=== PATIENT | female | born 1965 | race African-American/Black ===

== ENCOUNTER 2016-03-29 11:50 | Inpatient (IN) ==
--- NOTE | 2016-03-29 13:27 | Nephrology History & Physical ---
History of Present Illness Chief complaint: end-stage renal disease History of present illness: Ms. Arango is a 50 year old female who I saw in the office today. The patient was referred by local medical doctor yesterday she was found to have a creatinine of 14 mg/dL at his office. The patient states she has been having nausea and vomiting on a regular basis for the past month or so. She also describes having dysguasia. The patient has also had decreased appetite and loss of weight increase is and decreasing energy for the past month or so. She also was noticed that her hair has been falling out the past month or so. She' s had a and twitching movement as well. The patient is a 15 year history of hypertension. She reports having some kind of nephritis as a child for which she received steroids but came off of these at age 18. The patient thinks she had some lab done about a year ago and was told that she had some anemia at that time. ROS: Head - denies headaches ENT - denies sore throat Lymphatics - denies lymphadenopathy Hematology -she's noticed some easy bruising Heart - denies chest pain Lungs -positive dyspnea on exertion Abdomen - denies abdominal pain Musculoskeletal -she's had some backaches and arm aches she takes ibuprofen for these pains Skin - denies rash Neurology - denies stroke General - denies fever PE: General: in no acute distress Eyes: Pupils are round and reactive, conjunctivae are clear ENT: Nose is clear, O/P is benign Neck: Supple, no thyromegaly Lymphatics: No cervical, supraclavicular or axillary adenopathy Heart: Regular rate and rhythm, no edema Lungs: Clear to auscultation anteriorly, chest expansion symmetric Abdomen: Soft, normoactive bowel sounds, no hepatomegaly Musculoskeletal: No joint erythema or effusions or joint asymmetry Skin: Normal turgor, normal hydration, no rash Neuro/Psych: Alert and cooperative with poor insight Home Medications Medication Instructions Recorded Confirmed Type Ferrous Sulfate 325 mg PO BID 03/29/16 03/29/16 History Lisinopril 20 mg PO DAILY 03/29/16 03/29/16 History Multivitamin (Centrum) [Centrum 1 tablet PO DAILY 03/29/16 03/29/16 History Tab] Allergies Allergy/AdvReac Type Severity Reaction Status Date / Time No Known Allergies Allergy Verified 03/29/16 13:20 Medical,Surgical,& Family Hx - Medical History Cardio: History of: Hypertension Renal: History of: Renal Failure Reproductive: History of: Ovarian Cysts - Surgical History Reproductive Surgeries: Surgical HX of;: Section, Hysterectomy - Family History Family History: Reports;: Family Heart Disease (sister), Family Stroke (mother, father) Denies;: Family Anesthesia Reaction, Family Cancer, Family Diabetes, Family Hematology, Family Hypertension, Family Psychiatric Problems, Additional Family History - Social History Smoking Status: Never smoker Frequency of Alcohol Use: None Type of Drug Use: None Exam - Nephrology - Vital Signs Vital signs: Vital Signs Temp Pulse Resp BP Pulse Ox 03/29/16 13:03 97.9 F 86 18 151/97 99 Assessment and Plan (1) End stage renal disease Status: Acute Assessment and plan: We'll ask surgery to place a permanent dialysis catheter and initiate hemodialysis today or tomorrow, I'll check a urinalysis spot urine microalbumin to creatinine ratio and an antibody workup. I'll also try and get her previous labs from a year ago to see what her baseline creatinine had been. 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 Current Visit: Yes (2) Hypertension Status: Acute Assessment and plan: I'll start her on amlodipine 5 mg daily Current Visit: Yes (3) Anemia Status: Acute Assessment and plan: I'll transfuse HER-2 units packed red blood cells on hemodialysis and we'll Hemoccult her stool and check her iron stores. Current Visit: Yes (4) Hyperkalemia Status: Acute Assessment and plan: This should improve with hemodialysis Current Visit: Yes (5) Metabolic acidosis Status: Acute Assessment and plan: I'll give the patient some sodium bicarbonate Current Visit: Yes
[2016-03-29] MEDS ORDERED: PROMETHAZINE 25 MG TABLET PO PRN (13:31)
[2016-03-29] MEDS ORDERED: diphenhydrAMINE CAP 25 MG CAPSULE PO PRN (13:31)
[2016-03-29] MEDS ORDERED: ACETAMINOPHEN 325 MG TABLET PO PRN (13:31)
[2016-03-29] MEDS ORDERED: ZALEPLON 5 MG CAPSULE PO PRN (13:31)
--- NOTE | 2016-03-29 13:51 | General Surgery Consult Note ---
Addendum entered and electronically signed by Lien Nam PA 03/29/16 13:54: pt states when she was 6yo she was told by her hospital receptionist dr suárez that she had nephrotic syndrome. she was placed on steroids and took them until she was 18. they were stopped because she had a "moonface" and didnt want her senior portraits messed up. Original Note: Assessment and Plan - Time spent with patient Time spent with patient: Less than 30 minutes (1) End stage renal disease Status: Acute Assessment and plan: 50AAF w history of htn on lisinopril admitted by dr ector macario ESRD. pt in need of tunneled HD catheter. dr dougherty to see and examine pt. pt is npo so set up for tunneled HD cath today in OR. Current Visit: Yes History of Present Illness Chief complaint: N/V, hair loss, twitching History of present illness: 50NAF w history of HTN admitted by dr ector macario renal failure w creatinine of 14. pt states since december she has had nausea and vomiting. she states shortly thereafter all of her hair fell out. she recently started having muscle twitches as well. pt had some insurance issues that kept her from seeking medical attention. she saw an [facility] this week and she did blood work. she called pt and told her to follow up w a family doctor for abnormal urine tests. dr kaia flanagan wedge[place] sent her to dr barney this am. todays labs are all pending. pt denies CP, SOB, pedal edema or dysuria. dr dougherty has been consulted to place tunneled catheter. Home Medications Medication Instructions Recorded Confirmed Type Ferrous Sulfate 325 mg PO BID 03/29/16 03/29/16 History Lisinopril 20 mg PO DAILY 03/29/16 03/29/16 History Multivitamin (Centrum) [Centrum 1 tablet PO DAILY 03/29/16 03/29/16 History Tab] Allergies Allergy/AdvReac Type Severity Reaction Status Date / Time No Known Allergies Allergy Verified 03/29/16 13:20 Medical,Surgical,& Family Hx - Medical History Cardio: History of: Hypertension Renal: History of: Renal Failure Reproductive: History of: Ovarian Cysts - Surgical History Reproductive Surgeries: Surgical HX of;: Section, Hysterectomy - Family History Family History: Reports;: Family Heart Disease (sister), Family Stroke (mother, father) Denies;: Family Anesthesia Reaction, Family Cancer, Family Diabetes, Family Hematology, Family Hypertension, Family Psychiatric Problems, Additional Family History - Social History Smoking Status: Never smoker Frequency of Alcohol Use: None Type of Drug Use: None - Constitutional Constitutional: Present: as per HPI Exam - Constitutional Vitals: Period Temp Pulse Resp BP Sys/Bobo Pulse Ox Last 24 Hr 97.9 F 86 18 151/97 99 50 pleasant AAF, NAD, alert and oriented chest clear cv rrr abd soft, soreness from vomiting ext no edema Quality Measures - VTE Contraindication to Pharmacological VTE Prophylaxis: High Risk of Bleeding Results - Labs Labs: labs are pending. Creatinine from outside 14
[2016-03-29] MEDS: amLODIPine 5 MG TABLET PO SCH (14:00)
[2016-03-29] MEDS: SODIUM BICARBONATE 650 MG TABLET PO SCH ×2 (14:00→20:43)
[2016-03-29 14:04] LABS: Basophils % 0.1 % (0.0-0.8); Eosinophils # 0.1 10*3/uL (0.0-0.87); Eosinophils % 0.8 % (0.00-10.9); Hematocrit 21.1 VOL% (35.7-47.0); Hemoglobin 6.8 GM/DL (12.0-16.0); Immature Granulocytes % 0.4 %; Immature Granulocytes Absolute 0.03 #; Lymphocytes # 2.1 10*3/uL (1.4-4.0); Lymphocytes % 25.8 % (21.3-54.2); Mean Corpuscular HGB Conc 32.2 GM/DL (32-36); Mean Corpuscular Hemoglobin 29 PG (27-34); Mean Corpuscular Volume 91.3 FL (87-102); Mean Platelet Volume 10.8 FL (9.6-12.0); Monocytes # 0.5 10*3/uL (0.11-0.8); Monocytes % 6.8 % (1.7-12.7); Neutrophils # 5.3 10*3/uL (1.4-7.4); Neutrophils % 66.1 % (38.7-73.9); Platelet Count 180 T/CUMM (130-400); Red Blood Count 2.31 MC/CUMM (3.8-5.5); Red Cell Distribution Width 13.2 % (9.3-17.3)
[2016-03-29] MEDS ORDERED: BUPIVACAINE MPF 0.25% /EPI 30 ML VIAL ONE (14:13)
[2016-03-29] MEDS ORDERED: LIDOCAINE 1%/EPI INJ 20 ML VIAL ONE (14:13)
[2016-03-29] MEDS ORDERED: HEPARIN 5,000 UNIT/1 ML VIAL ONE (14:13)
[2016-03-29 14:22] LABS: Alanine Aminotransferase 18 U/L (13-56); Albumin 3.4 G/DL (3.4-5.0); Alkaline Phosphatase 122 U/L (45-117); Aspartate Amino Transferase 12 U/L (0-37); Bilirubin,Total < 0.39 MG/DL (0.2-1.0); Blood Urea Nitrogen 126 MG/DL (7-18); Calcium 6.1 MG/DL (8.5-10.1); Glucose 91 MG/DL (74-106); Potassium 5.4 MMOL/L (3.5-5.1); Sodium 143 MMOL/L (136-145)
[2016-03-29 14:23] LABS: % Iron Saturation 49.3 % (18-50); Ferritin 334.8 ng/ml (8-252)
[2016-03-29] MEDS ORDERED: SODIUM CHLORIDE 0.9% 250 ML IV PRN (14:52)
[2016-03-29 15:15] LABS: Hepatitis A Ab IgM Quant 0.13 Index; Hepatitis A Ab IgM Result Negative (Negative); Hepatitis B Core IgM Quant 0.15 Index; Hepatitis B Core IgM Result Negative (Negative); Hepatitis B Surface Ag Quant < 0.10 Index; Hepatitis B Surface Ag Result Negative (Negative); Hepatitis C Virus Ab Quant 0.07 Index; Hepatitis C Virus Ab Result Negative (Negative)
[2016-03-29] MEDS: DEXTROSE 5% NACL 0.45% 1,000 ML IV SCH (16:12)
[2016-03-29] MEDS ORDERED: PROPOFOL 200 MG/20 ML VIAL IV ONE (16:19)
--- NOTE | 2016-03-29 16:50 | Operative Note ---
Date of procedure: 03/29/16 Pre-op diagnosis: renal failure Post-op diagnosis: same Procedure: Preoperative diagnosis Renal failure with need for hemodialysis access Postoperative diagnosis Same Procedures performed 1. Right internal jugular vein tunneled hemodialysis catheter placement 2. Ultrasound guidance and interpretation of images 3. Fluoroscopic guidance and interpretation of images Findings The right internal jugular vein is compressible and it was accessed for hemodialysis access. The tip of the catheter was place in the right atrium. Patient tolerated procedure well and both ports worked well. Complications none apparent Specimen None Indications Renal failure with need for access for hemodialysis Description of procedure The patient was taken to the operating room and transferred to the operating table in the supine position. Pressure points are padded and SCDs placed lower extremity. Monitored anesthesia was administered and the neck was prepped and draped sterile fashion using chloride same. Preoperative antibiotics were administered and a timeout was performed. Ultrasound was used to identify the internal jugular vein and the right neck and local anesthetic was infiltrated around the vein. Local anesthetic was also administered around the planned tract site down to the anterior chest wall below the clavicle. The vein was accessed on first taken nonpulsatile venous blood was obtained. A wire was placed using Seldinger technique. An incision was made alongside the wire using a long blade scalpel and a separate incision below the clavicle was made with an 11 blade scalpel. A 19 cm catheter was tunneled from the chest incision into the neck wound and a dilator peel-away sheath was placed over the wire. The wire and dilator was removed and the catheter was placed to the peel- away sheath. The catheter was secured in place in the atrium and the right atrium on fluoroscopic images. Both returned blood easily and were flushed with heparin. The catheter was secured in place using 3-0 nylon sutures and the neck incision was closed with 3-0 nylon suture. Sterile dressings were applied. The patient was awakened from anesthesia and transferred to recovery. Postoperative plan Begin hemodialysis and obtained chest x-ray postop Implants: 19cm tunneled hemodialysis catheter Anesthesia: MAC, local Surgeon / Physician: Alberto Florentino Estimated blood loss: none Specimens: none sent Condition: stable Disposition: PACU Results - Labs CBC & BMP: 03/29/16 13:45 03/29/16 13:45 Discharge Plan - Discharge Medications No Action Multivitamin (Centrum) [Centrum Tab] 1 tablet PO DAILY Ferrous Sulfate 325 mg PO BID Lisinopril 20 mg PO DAILY - Follow Up or Referral Follow Up: Alberto Florentino MD [Physician] - 2 Weeks (with vein mapping) - Forms/Instructions
--- NOTE | 2016-03-29 16:55 | Anesthesia ---
Anesthesia Post OP - Post Ansesthetic Evaluation Patient seen in post op: Yes Resp: within normal limits CV: within normal limits Mental: within normal limits Temp: within normal limits Nbhw-Mi-Gddtydrst: within normal limits Nausea and Vomiting: within normal limits Pain: within normal limits
[2016-03-29] MEDS ORDERED: MIDAZOLAM 2 MG/2 ML VIAL ONE (16:58)
--- NOTE | 2016-03-29 17:42 | XRay Report ---
Portable chest Date: 03/29/2016 Clinical history: Dialysis catheter Comparison: None Technique: Portable AP sitting chest Findings: The heart is minimally enlarged. Insertion right IJ venous dialysis catheter with tips in right atrium. No pneumothorax. Minimal atelectasis/edema. No acute osseous findings. Impression: Right IJ venous emesis catheter in satisfactory position with no pneumothorax. Minimal atelectasis/edema. PROCEDURE INTERPRETED AT [facility] DEPARTMENT OF RADIOLOGY Final Report Signed by: Dr. Adrianna Dao
--- NOTE | 2016-03-29 18:02 | Interventional Radiology Rpt ---
Exam: IR fluoro guide cv cath Date: 03/29/2016 12:00 AM Comparison: None Indication: Dialysis catheter placement Technique:[Fluoroscopy time of 14 seconds documented. AP C-arm films obtained. Findings: Insertion of right IJ venous dialysis catheter with tips in right atrium. Impression: Satisfactory insertion of right IJ venous dialysis catheter. PROCEDURE INTERPRETED AT [facility] DEPARTMENT OF RADIOLOGY Final Report Signed by: Dr. Adrianna Dao
--- NOTE | 2016-03-29 18:20 | Ultrasound Report ---
Exam: US renal Bilateral Date: 03/29/2016 1:35 PM Comparison: None Indication: Renal failure Technique:[Multiple transabdominal real-time scans were obtained and kidneys. Ultrasound images were captured and stored.] Findings: Right kidney measures 66 x 23 x 3 5 mm. Left kidney measures 64 x 32 x 28 mm. No renal masses or hydronephrosis. Echogenic kidneys. Impression: Generalized cortical loss in the kidneys. Echogenic kidneys which can be seen with medical renal disease. No mass or hydronephrosis. PROCEDURE INTERPRETED AT [facility] DEPARTMENT OF RADIOLOGY Final Report Signed by: Dr. Adrianna Dao
[2016-03-30] MEDS: ONDANSETRON 4 MG/2 ML VIAL IV PRN ×2 (03:54→20:57)
[2016-03-30] MEDS: SODIUM BICARBONATE 650 MG TABLET PO SCH ×3 (09:04→20:28)
[2016-03-30] MEDS: amLODIPine 5 MG TABLET PO SCH (09:04)
[2016-03-30 09:47] LABS: Hematocrit 26.9 VOL% (35.7-47.0)
[2016-03-30 09:55] LABS: Hemoglobin 8.8 GM/DL (12.0-16.0)
[2016-03-30] MEDS ORDERED: cloNIDine 0.1 MG TABLET PO PRN (11:37)
--- NOTE | 2016-03-30 12:15 | Nephrology Progress Note ---
Nephrology - PN: Subj Interval history: Patient seen on hemodialysis, she starting this well. She states she had some nausea after yesterday's dialysis Assessment/plan 1. End-stage renal disease-this patient's renal ultrasound showed increased echogenicity consistent with chronic medical renal disease, her MARITA was negative I suspect she has hypertensive nephrosclerosis. We'll continue hemodialysis. We will plan on a 4 hour treatment tomorrow. 2. Anemia-patient was transfused 2 units packed red blood cells will also give her a by mouth on hemodialysis 3. Hypertension-this patient's blood pressures fluctuating wildely, she's been started on Norvasc 5 mg daily and I've written a order for clonidine when necessary 4. Hyperkalemia this should improve with hemodialysis 5. Metabolic acidosis this should improve with hemodialysis 6. Hypocalcemia-I'm going to check a PTH and phosphorus on hemodialysis today, I'm going to start calcium carbonate thousand milligrams by mouth 3 times a day with meals. Exam (PN)-Nephrology - Vital Signs Vital signs: Period Temp Pulse Resp BP Sys/Bobo Pulse Ox Last 24 Hr 97.9 F-98.5 F 78-114 16-20 116-177/84-99 99-100 - Lab 03/30/16 08:44 03/29/16 13:45 Most recent lab results Calcium 6.1 MG/DL (8.5-10.1) L 03/29/16 13:45 Assessment and Plan (1) End stage renal disease Status: Acute Assessment and plan: We'll ask surgery to place a permanent dialysis catheter and initiate hemodialysis today or tomorrow, I'll check a urinalysis spot urine microalbumin to creatinine ratio and an antibody workup. I'll also try and get her previous labs from a year ago to see what her baseline creatinine had been. 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 Current Visit: Yes (2) Hypertension Status: Acute Assessment and plan: I'll start her on amlodipine 5 mg daily Current Visit: Yes (3) Anemia Status: Acute Assessment and plan: I'll transfuse HER-2 units packed red blood cells on hemodialysis and we'll Hemoccult her stool and check her iron stores. Current Visit: Yes (4) Hyperkalemia Status: Acute Assessment and plan: This should improve with hemodialysis Current Visit: Yes (5) Metabolic acidosis Status: Acute Assessment and plan: I'll give the patient some sodium bicarbonate Current Visit: Yes Specialty Discharge - Follow Up or Referrals Follow up with: Alberto Florentino MD [Physician] - 04/12/16 1:30 pm (with vein mapping. You will go back on April 19 at 9:[address] Florentino.)
[2016-03-30] MEDS ORDERED: EPOETIN ALFA 2,000 UNIT/1 ML VIAL IV PRN (12:16)
[2016-03-30] MEDS: DEXTROSE 5% NACL 0.45% 1,000 ML IV SCH (14:44)
[2016-03-30] MEDS: CALCIUM (CARBONATE) 500 MG TABLET PO SCH (17:17)
[2016-03-31] MEDS: DEXTROSE 5% NACL 0.45% 1,000 ML IV SCH ×2 (06:11→15:20)
[2016-03-31] MEDS: SODIUM BICARBONATE 650 MG TABLET PO SCH ×3 (08:35→20:50)
[2016-03-31] MEDS: CALCIUM (CARBONATE) 500 MG TABLET PO SCH ×3 (08:35→17:32)
[2016-03-31] MEDS: amLODIPine 5 MG TABLET PO SCH (08:35)
--- NOTE | 2016-03-31 09:50 | Dialysis Note ---
Dialysis Note - Dialysis Note Ms. Arango is seen in the dialysis unit. She is to have 4 hour hemodialysis today. She says that she is feeling some better after getting dialysis. She has a right chest dialysis catheter and has no peripheral edema. Overall she is doing well
[2016-03-31 11:04] LABS: Apearance,Urine CLEAR (Clear); Bilirubin,Urine Negative (Negative); Blood, Urine Small mg/dL (Negative); Glucose,Urine (UA) Negative (Negative); Ketones,Urine Negative (Negative); Nitrite,Urine Negative (Negative); Protein,Urine >=500 MG/DL; Squamous Epithelial Cell,Urine Occasional /HPF (0-10); Urine Color Yellow (Yellow); Urine Specific Gravity 1.003 (1.001-1.035); Urine Urobilinogen < 2.0 EU/DL (0.2-1.0); WBC,Urine <1 /HPF (0-6)
[2016-03-31 13:53] LABS: Protein/Creatinine Ratio,Urine 6.7 RATIO
[2016-03-31 14:37] LABS: Microalbum/Creat Ratio Random 4918.9 RATIO (0-30)
[2016-03-31 14:47] LABS: Myeloperoxidase Antibody < 0.2 U
[2016-04-01] MEDS: DEXTROSE 5% NACL 0.45% 1,000 ML IV SCH ×2 (01:01→08:12)
[2016-04-01] MEDS: amLODIPine 5 MG TABLET PO SCH (08:10)
[2016-04-01] MEDS: CALCIUM (CARBONATE) 500 MG TABLET PO SCH ×3 (08:10→16:26)
[2016-04-01] MEDS: SODIUM BICARBONATE 650 MG TABLET PO SCH ×3 (08:10→20:35)
--- NOTE | 2016-04-01 10:19 | Nephrology Progress Note ---
Nephrology - PN: Subj Interval history: Ms. Arango is seen in follow-up of her end-stage renal disease. She is feeling some better and having much less nausea since beginning hemodialysis. She did dialyze yesterday. She is hypocalcemic and is already taking calcium supplement so we will begin calcitriol. Her PTH is 1400 and hopefully the vitamin D help suppress parathyroid hormone. I believe she can do without the IV fluid now that she is eating and drinking some. We will stop it and encouraged her to be up and out of bed. Exam (PN)-Nephrology - Vital Signs Vital signs: Period Temp Pulse Resp BP Sys/Bobo Pulse Ox Last 24 Hr 97.8 F-98.7 F 79-97 16-20 126-151/75-94 98-100 - Lab 03/30/16 08:44 03/29/16 13:45 Most recent lab results Calcium 6.1 MG/DL (8.5-10.1) L 03/29/16 13:45 Phosphorus 2.0 MG/DL (2.5-4.9) L 03/30/16 12:40 Specialty Discharge - Follow Up or Referrals Follow up with: Alberto Florentino MD [Physician] - 04/12/16 1:30 pm (with vein mapping. You will go back on April 19 at 9:[address] Florentino.)
--- NOTE | 2016-04-02 08:37 | Discharge Summary ---
Hospital Course - Hospital Course Hospital Course: Ms. Arango is a 50-year-old -[place] lady who was admitted for increased BUN/creatinine creatinine. The patient's previous baseline creatinine was unknown. She is known to have a 15 year history of hypertension. The patient was having uremic symptoms for the past month or so. She was also noted to have a hematocrit of 21%. Antibody workup was done here this was negative for MARITA her C3 was slightly decreased C4 was normal. ANCA and anti-GBM were pending at the time of discharge. She did have about 5 g of protein leakage per day on a microalbumin to creatinine ratio. Her urinary sediment was otherwise unremarkable. A renal ultrasound showed increased echogenicity consistent with chronic medical renal disease. The patient was initiated on hemodialysis she tolerated this well with some improvement in her uremia symptoms. She is also noted to have an elevated PTH of 1500 a phosphorus of 2 and a calcium is 6.1. She was started on calcium carbonate with meals. The patient was also started on erythropoietin therapy. A tunneled dialysis catheter was placed by Dr. Florentino and she has a follow-up for permanent access in the next couple weeks with Dr. Florentino. The patient is to dialyze in [facility] on a Saturday basis. At this time the patient is reached maximal hospital benefit and is to be discharged home. Diagnosis - Discharge Diagnosis (1) End stage renal disease Status: Acute (2) Hypertension Status: Acute (3) Anemia Status: Acute (4) Hyperkalemia Status: Acute (5) Metabolic acidosis Status: Acute Specialty Discharge - Follow Up or Referrals Follow up with: Alberto Florentino MD [Physician] - 04/12/16 1:30 pm (with vein mapping. You will go back on April 19 at 9:[address] Florentino.) Discharge Plan - Discharge Data Disposition: Disch To Home/Self Care Condition at Discharge: Stable Discharge Diet: advance to your usual diet - Discharge Medications New Calcitriol [Rocaltrol] 0.5 mcg PO QOTHER DAY #14 capsule HYDROcodone/ACETAMIN 5-325 [[place] 5-325] 1 tablet PO Q4H PRN #14 tablet PRN Reason: Pain Mild (1-3) Calcium (Carbonate) [Oscal 500] 1,000 mg PO TID W/MEALS #90 tablet Epoetin Jona [Epogen] 8,000 unit IV WITH DIALYSIS PRN #0 vial PRN Reason: Dialysis amLODIPine [Norvasc] 5 mg PO DAILY #30 tablet Continue Multivitamin (Centrum) [Centrum Tab] 1 tablet PO DAILY Lisinopril 20 mg PO DAILY Discontinued Ferrous Sulfate 325 mg PO BID - Follow Up or Referral Follow Up: Alberto Florentino MD [Physician] - 04/12/16 1:30 pm (with vein mapping. You will go back on April 19 at 9:[address] Florentino.) - Forms/Instructions Instructions: Renal Failure Diet (DC) Exam - Constitutional Vitals: Period Temp Pulse Resp BP Sys/Bobo Pulse Ox Last 24 Hr 97.2 F-99.0 F 85-100 16-18 133-167/81-85 96-98 Discharge Results Procedures and tests throughout hospitalization: Pending Orders 03/29/16 13:37 Occult Blood, Stool Routine 03/29/16 13:45 ANCA Panel for Vasculitis Routine Red Blood Cells Leuko Red Routine Type and Screen Routine dsDNA Ab with Reflex, IgG, S Routine DS: Provider Date of admission: 03/29/16 13:23 Primary care physician: . No PCP Attending physician on admission: Pablo Sutherland MD Consults: 03/29/16 13:20 Consult to Dietitian [CONS] Routine Reason for Dietitian: Other Consult Comment: weight loss 03/29/16 13:24 Consult to Physician [CONS] Routine Comment: Consulting Provider: Alberto Florentino Person Notified: Ch[place] Date Notified: 03/29/16 Time Notified: 13:24 03/29/16 13:34 Consult to Case Mgmt/Social Srvs [CONS] Routine Reason for Case Mgmt/Social Srvs: Rehab Dialysis 03/29/16 13:47 Consult to Anesthesiology [CONS] Routine Consulting Provider: Reason for Anesthesiology: Pre-op Clearance Discharging clinician: Pablo Sutherland MD
[2016-04-02] MEDS: CALCIUM (CARBONATE) 500 MG TABLET PO SCH (08:45)
[2016-04-02] MEDS: amLODIPine 5 MG TABLET PO SCH (08:45)
[2016-04-02] MEDS: SODIUM BICARBONATE 650 MG TABLET PO SCH (08:45)
[2016-04-02] MEDS ORDERED: CALCITRIOL 0.5 MCG CAPSULE PO SCH (09:00)
[2016-04-02 10:08] VITALS: BP 140/83
== END 2016-04-02 11:18 | disposition home or self-care (01) | DRG 683 ==
LOC: N.5E 12:15
PROVIDERS: ADMIT Internal Medicine Nephrology; ATTEND Internal Medicine Nephrology

== ENCOUNTER 2016-10-18 02:02 | Inpatient (IN) ==
--- NOTE | 2016-10-18 03:06 | Emergency Department Note ---
Arrival - Arrival Chief Complaint: Fever Stated Complaint: fever/dialysis pt ED Nursing Triage Note: TO ER PER WHEELCHAIR WITH C/O FEVER. PATIENT STATES SHE BEGAN RUNNING FEVER AFTER DIALYSIS YESTERDAY. PATIENT REPORTS FEVER AT HOME BEFORE COMING TO ER WAS 102. REPORTS TREATED FEVER WITH TYLENOL AROUND 1999 THIS EVENING. PATIENT DOES DIALYSIS ON MWF. Mode of Arrival: Wheelchair Time Seen by Provider: 10/18/16 03:03 - History of Present Illness HPI Narrative: This is a 50-year-old female of descent with a history of hypertension chronic renal failure on hemodialysis Saturday with Dr. Sutherland who presents with shaking chills and fever 102 which started today. Has a Vas-Cath in her left subclavian vein which was placed a few months ago through which she receives dialysis. She had a fistula in her left arm which became infected and for which she completed 6 weeks of gentamicin and vancomycin for staph infection. 2 weeks ago she had a fistula placed in her right arm in [facility]. There is no cough back pain abdominal pain or burning on urination. Allergies/Adverse Reactions: Allergies Allergy/AdvReac Type Severity Reaction Status Date / Time latex Allergy Intermediate RASH Verified 10/18/16 02:15 povidone-iodine Allergy RASH Verified 10/18/16 02:16 [From Betadine] soap [From Betadine] Allergy RASH Verified 10/18/16 02:16 Home Medications: Home Medications Medication Instructions Recorded Confirmed Type Calcitriol [Rocaltrol] 0.5 mcg PO QOTHER DAY #14 capsule 04/02/16 08/09/16 Rx Epoetin Jona [Epogen] 8,000 unit IV WITH DIALYSIS PRN #0 04/02/16 08/09/16 Rx vial Calcium Acetate [Phoslo] 667 mg PO TID 05/08/16 08/09/16 History amLODIPine [Norvasc] 5 mg PO BEDTIME 07/12/16 08/09/16 History Hydrocodone/Acetaminophen [[place] 1 each PO Q6H PRN #5 tablet 08/09/16 Rx 7.5-325 Tablet] HydrOXYzine PAMOATE CAP [Vistaril 50 mg PO QID PRN #20 capsule 08/14/16 Rx Cap] Hydrocortisone 1% Cream 1 applic TOP BID #30 gm 08/14/16 Rx Review of System - Review of System Constitutional: Present: chills, fever Eyes: Absent: redness, vision change Head/Ears/Nose/Throat: Absent: epistaxis, nasal drainage Respiratory: Absent: respiratory distress Cardiovascular: Absent: dyspnea on exertion, orthopnea, edema Gastrointestinal: Absent: diarrhea, constipation, hematemesis Genitourinary female: Absent: frequency, genital lesions, hematuria Musculoskeletal: Absent: joint swelling, lower back pain, leg pain Skin: Absent: change in color, change in hair/nails, pruritus Neurological: Absent: numbness, paresthesias, confusion Psychiatric: Absent: suicidal thoughts, homicidal thoughts, auditory hallucinations Endocrine: Absent: heat intolerance, polydipsia, polyuria Hematological/Lymphatic: Absent: easy bruising, lymphadenopathy Allergic/Immunologic: Absent: urticaria, itchy eyes Medical,Surgical,& Family Hx - Medical History Cardio: History of: Hypertension Neurology: No history of: Seizures HEENT: History of: Eye Problem (GLASSES), Dental Problems (PARTIAL UPPER) Respiratory: No history of: Respiratory Problems (FLU VAC-NO; PNEU VAC-NO.) Renal: History of: Dialysis ([facility], DR [facility]), Renal Failure Gastrointestinal: History of: GI Problems (OCCCASIONAL CONSTIPATION.) Hematology: History of: Anemia (PAST HX) Reproductive: History of: Ovarian Cysts Other: History of: Anesthesia Reactions (NAUSEA AND VOMITING.) - Surgical History Cardiac Surgeries: Sugical HX of: Vascular Access Devices Abdominal Surgeries: Surgical HX of: Colonoscopy, EGD Reproductive Surgeries: Surgical HX of;: Section (X2), Gynecologic Surgery, Hysterectomy (PARTIAL) - Family History Family History: Reports;: Family Heart Disease (sister), Family Stroke (mother, father) Denies;: Family Anesthesia Reaction, Family Cancer, Family Diabetes, Family Hypertension, Family Psychiatric Problems - Social History Smoking Status: Never smoker Frequency of Alcohol Use: None Type of Drug Use: None Exam Vital Signs: Vital Signs Temperature 100.7 F H 10/18/16 02:05 Pulse Rate 126 H 10/18/16 02:05 Respiratory Rate 22 10/18/16 02:26 Blood Pressure 93/68 10/18/16 02:05 O2 Sat by Pulse Oximetry 98 10/18/16 02:05 - General Exam limited due to: ALOC - Head Head exam: Present: atraumatic, normocephalic - Eye Eye exam: Present: PERRL, EOMI - ENT ENT exam: Present: normal exam, normal oropharynx - Neck Neck exam: Present: normal inspection, full ROM - Chest Chest inspection: Present: normal inspection - Respiratory Respiratory exam: Present: normal lung sounds bilaterally - Cardiovascular Cardiovascular exam: Present: regular rate, normal rhythm - Abdominal Exam Abdominal exam: Present: soft, normal bowel sounds - Extremities Exam Extremities exam: Present: normal inspection, full ROM - Back Exam Back exam: Present: normal inspection, full ROM - Neurological Exam Neurological exam: Present: alert, oriented X3, CN II-XII intact - Psychiatric Psychiatric exam: Present: normal affect, normal mood - Skin Skin exam: Present: warm, dry Course Course Narrative: The patient has a 21,000 white blood cell count the chest x-ray does not show an infiltrate. The patient does have a history of shaking chills and fever of 102. We are suspicious that the left Vas-Cath is the source of her infection since during dialysis on Saturday purulent drainage was noted surrounding the catheter. The patient has been cultured and treated with vancomycin and Zosyn and will be admitted to the hospital for removal of the central line most likely an intravenous antibiotics. Results - Labs CBC & BMP: 10/18/16 02:46 10/18/16 02:46 Disposition Clinical Impression: Line sepsis Disposition: Still a Patient Additional Instructions: The patient has a 21,000 white blood cell count the chest x-ray does not show an infiltrate. The patient does have a history of shaking chills and fever of 102. We are suspicious that the left Vas-Cath is the source of her infection since during dialysis on Saturday purulent drainage was noted surrounding the catheter. The patient has been cultured and treated with vancomycin and Zosyn and will be admitted to the hospital for removal of the central line most likely an intravenous antibiotics.
[2016-10-18] MEDS ORDERED: VANCOMYCIN INJ 1,000 MG in SODIUM CHLORIDE 0.9% 250 ML IV STA (03:10)
[2016-10-18] MEDS ORDERED: PIPERACILLIN/TAZOBACTAM 3,375 MG in SODIUM CHLORIDE 0.9% 100 ML IV STA (03:10)
[2016-10-18 03:27] LABS: Basophils % 0.2 % (0.0-0.8); Eosinophils % 0.2 % (0.00-10.9); Hematocrit 33.9 VOL% (35.7-47.0); Hemoglobin 11.4 GM/DL (12.0-16.0); Immature Granulocytes % 0.8 %; Immature Granulocytes Absolute 0.17 #; Lymphocytes % 4.6 % (21.3-54.2); Mean Corpuscular HGB Conc 33.6 GM/DL (32-36); Mean Corpuscular Hemoglobin 32 PG (27-34); Mean Platelet Volume 10.8 FL (9.6-12.0); Monocytes # 0.8 10*3/uL (0.11-0.8); Monocytes % 3.7 % (1.7-12.7); Neutrophils # 19.3 10*3/uL (1.4-7.4); Neutrophils % 90.5 % (38.7-73.9); Platelet Count 174 T/CUMM (130-400); Red Blood Count 3.53 MC/CUMM (3.8-5.5); Red Cell Distribution Width 14.4 % (9.3-17.3); White Blood Count 21.3 T/CUMM (4-12)
[2016-10-18] MEDS ORDERED: VANCOMYCIN 1,000 MG VIAL ONE (03:54)
[2016-10-18] MEDS ORDERED: PIPERACILLIN/TAZOBACTAM 3,375 MG VIAL IV ONE (03:54)
[2016-10-18 04:05] LABS: Apearance,Urine Clear (Clear); Bacteria,Urine Occasional /HPF (Few); Bilirubin,Urine Negative (Negative); Blood, Urine NEGATIVE (Negative); Glucose,Urine (UA) Negative (Negative); Ketones,Urine Negative (Negative); Mucus,Urine Occasional /LPF (Occasional); Nitrite,Urine Negative (Negative); Protein,Urine >=500 MG/DL; RBC,Urine <1 /HPF (0-4); Squamous Epithelial Cell,Urine Occasional /HPF (0-10); Urine Color Straw (Yellow); WBC,Urine 1 /HPF (0-6)
[2016-10-18 04:07] LABS: Urine Urobilinogen 0.2 EU/DL (0.2-1.0)
[2016-10-18 04:14] LABS: Albumin 3.6 G/DL (3.4-5.0); Bilirubin,Total 0.7 MG/DL (0.2-1.0); Calcium 9.2 MG/DL (8.5-10.1); Osmolality,Calculated 272.2 MOS/KG (273-304); Potassium 5.2 MMOL/L (3.5-5.1); Total Protein 7.9 G/DL (6.4-8.3)
[2016-10-18 04:47] LABS: Lymphocytes 8 % (20-55); Segmented Neutrophils 87 % (50-85); Total Cells Counted 100
[2016-10-18 04:48] LABS: Platelet Estimate Normal
[2016-10-18 04:49] LABS: Hypochromasia 1+
[2016-10-18] MEDS ORDERED: ONDANSETRON 4 MG/2 ML VIAL IV PRN (05:30)
--- NOTE | 2016-10-18 06:01 | XRay Report ---
Portable chest Date: 10/18/2016 Clinical history: Fever, sepsis Comparison: 08/15/2016 Technique: Portable AP sitting chest Findings: The heart is normal in size with stable left IJ venous dialysis catheter. Chronic scarring in the lungs with stable mediastinum and osseous structures. Impression: No acute cardiopulmonary pathology identified. PROCEDURE INTERPRETED AT [facility] DEPARTMENT OF RADIOLOGY Final Report Signed by: Dr. Adrianna Dao
--- NOTE | 2016-10-18 06:05 | Hospitalist History & Physical ---
Assessment and Plan (1) ESRD (end stage renal disease) on dialysis Status: Acute Current Visit: Yes (2) Infection, dialysis vascular access Status: Acute Current Visit: Yes (3) Sepsis Status: Acute Current Visit: Yes (4) Hyperkalemia Status: Acute Current Visit: No (5) Hyponatremia Status: Acute Assessment and plan: Plan: 1. Sepsis: Consult Surgery for new central dialysis access. Remove infected access once new access has been obtained. Continue Vancomycin with pharmacy consult. Also, there is always the possiblity of endocarditis in this patient that states she had bacteremia with staph prior to this admission. She states she had received 6 weeks of IV antibiotic therapy. Obtain Echo if blood cultures are positive. 2. HTN:Monitor VS q 4, monitored bed. Labetalol for prn BP control until medications verified and patient can take po. 3. ESRD: Monitor strict I&O, Consult Nephrology for HD. Current Visit: Yes History of Present Illness Chief complaint: Fever, Chills, Infected HD access History of present illness: Ms. Arango is a 50 year old female with past medical history significant for end-stage renal disease and essential hypertension presented to the ED with a fever of 102 and tachycardia of 126. Onset of symptoms was acute and occurred right after HD. The symptoms included fever, chills, malaise, drainage from Left subclavian perm cath site and overall fatigue. The patient denied productive cough, dyspnea, abd pain, nausea, vomiting, dysuria, diarrhea, and melena. Chest xray revealed no infiltrates, Labs revealed leukocytosis of 21,000 , stable anemia, lactate of 1.3 hyponatremia, hyperkalemia and uremia with a creatinine of 6.7. Dialysis days are __. 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 Florentino is her surgeon. Blood cultures and urine sample was sent in the Ed prior to antibiotics. Vancomycin and Zosyn were initiated in the ED. The patient states she recently had a new fistula placed September the with site approximated well in her right arm with positive thrill and no signs of infection. She states she previously had a "staph" infection in which she received antibiotics for 6 weeks. I could not find positive blood cultures in our records. The patient was admitted under observation status to the Hospitalist service with Consults to Dr. Florentino and Nephrology. Home Medications Medication Instructions Recorded Confirmed Type Calcitriol [Rocaltrol] 0.5 mcg PO QOTHER DAY #14 capsule 04/02/16 08/09/16 Rx Epoetin Jona [Epogen] 8,000 unit IV WITH DIALYSIS PRN #0 04/02/16 08/09/16 Rx vial Calcium Acetate [Phoslo] 667 mg PO TID 05/08/16 08/09/16 History amLODIPine [Norvasc] 5 mg PO BEDTIME 07/12/16 08/09/16 History Hydrocodone/Acetaminophen [[place] 1 each PO Q6H PRN #5 tablet 08/09/16 Rx 7.5-325 Tablet] HydrOXYzine PAMOATE CAP [Vistaril 50 mg PO QID PRN #20 capsule 08/14/16 Rx Cap] Hydrocortisone 1% Cream 1 applic TOP BID #30 gm 08/14/16 Rx Allergies Allergy/AdvReac Type Severity Reaction Status Date / Time latex Allergy Intermediate RASH Verified 10/18/16 02:15 povidone-iodine Allergy RASH Verified 10/18/16 02:16 [From Betadine] soap [From Betadine] Allergy RASH Verified 10/18/16 02:16 Medical,Surgical,& Family Hx - Medical History Cardio: History of: Hypertension Neurology: No history of: Seizures HEENT: History of: Eye Problem (GLASSES), Dental Problems (PARTIAL UPPER) Respiratory: No history of: Respiratory Problems (FLU VAC-NO; PNEU VAC-NO.) Renal: History of: Dialysis ([facility]), Renal Failure Gastrointestinal: History of: GI Problems (OCCCASIONAL CONSTIPATION.) Hematology: History of: Anemia (PAST HX) Reproductive: History of: Ovarian Cysts Other: History of: Anesthesia Reactions (NAUSEA AND VOMITING.) - Surgical History Cardiac Surgeries: Sugical HX of: Vascular Access Devices Abdominal Surgeries: Surgical HX of: Colonoscopy, EGD Reproductive Surgeries: Surgical HX of;: Section (X2), Gynecologic Surgery, Hysterectomy (PARTIAL) - Family History Family History: Reports;: Family Heart Disease (sister), Family Stroke (mother, father) Denies;: Family Anesthesia Reaction, Family Cancer, Family Diabetes, Family Hypertension, Family Psychiatric Problems - Social History Smoking Status: Never smoker Frequency of Alcohol Use: None Type of Drug Use: None Functional capacity: independent ambulation - Constitutional Constitutional: Present: chills, fatigue, fever(s), malaise - EENT Eyes: Present: requires corrective lense Ears: Absent: ear discharge, ear pain Nose, mouth and throat: Absent: dysphagia, headache(s), sore throat, throat swelling - Cardiovascular Cardiovascular: Absent: chest pain at rest, chest pain with activity, claudication, diaphoresis, dyspnea, dyspnea on exertion, edema, radiating jaw, neck or arm pain, orthopnea, palpitations - Respiratory Respiratory: Absent: cough, dyspnea, dyspnea on exertion, pain on inspiration - Gastrointestinal Gastrointestinal: Present: constipation. Absent: abdominal pain, fecal incontinence, hematemesis, loose stools, nausea, vomiting - Genitourinary Genitourinary: Present: other (voids without difficulty). Absent: difficulty urinating, dysuria, flank pain - Musculoskeletal Musculoskeletal: Absent: other (right hip with eccymosis) - Neurological Neurological: Absent: confusion, dizziness, frequent falls, paresthesias, syncope - Psychiatric Psychiatric: Absent: confusion, depression, homicidal ideation, panic attacks, suicidal ideation, visual hallucinations - Endocrine Endocrine: Present: fatigue. Absent: heat intolerance, polydipsia - Hematologic/Lymphatic Hematologic/Lymphatic: Present: easy bruising Exam - Constitutional Vitals: Period Temp Pulse Resp BP Sys/Bobo Pulse Ox Last 24 Hr 100.7 F-100.7 F 126-126 18-22 93-93/68-68 98 General appearance: normal weight - Head Head exam: Present: normal inspection, normocephalic, atraumatic - Eye Eye exam: Present: EOMI Pupils: Present: TARAH, normal accommodation - ENT ENT exam: Present: normal exam, normal oropharynx - Neck Neck exam: Present: normal inspection - Respiratory Respiratory exam: Present: clear to auscultation bilaterally - Cardiovascular Cardiovascular exam: Present: tachycardia. Absent: carotid bruit, diastolic murmur, systolic murmur - GI/Abdominal GI/Abdominal exam: Present: normal bowel sounds - Extremities Exam Extremities exam: Present: normal capillary refill, full ROM, other (ecchymosis of right hip. ). Absent: edema - Neurological Exam Neurological exam: Present: alert, oriented X3, CN II-XII intact - Psychiatric Psychiatric exam: Present: normal affect, normal mood - Skin Skin exam: Present: normal color, warm, dry, intact (ecchymosis right hip. Dsg to left subclavian with drainage present. ), other Results - Labs CBC & BMP: 10/18/16 02:46 10/18/16 02:46 - EKG EKG shows: tachycardia - Impressions Sepsis due to possible bacteremia. - Diagnostic Findings Procedure: Chest x-ray: image reviewed by me, report reviewed by me Quality Measures - VTE Contraindication to Pharmacological VTE Prophylaxis: Clinical assessment deems Pt at low risk, no prophalaxis needed
[2016-10-18] MEDS ORDERED: ACETAMINOPHEN 325 MG TABLET ONE ×2 (08:13→12:43)
[2016-10-18] MEDS: ACETAMINOPHEN 325 MG TABLET PO PRN ×2 (08:21→12:43)
[2016-10-18] MEDS ORDERED: DOCUSATE SODIUM 100 MG CAPSULE PO PRN (09:00)
[2016-10-18] MEDS: PANTOPRAZOLE 40 MG TABLET PO SCH (09:40)
--- NOTE | 2016-10-18 17:36 | Nephrology Consult Note ---
History of Present Illness Chief complaint: End-stage renal disease History of present illness: Ms. Arango is a 50 year old female with history of end-stage renal disease due to hypertension currently dialyzes on a Saturday schedule at the [place] dialysis unit. The patient has had multiple accesses placed and recently had a new fistula placed in the left upper arm. Patient states that for the past several days she has noticed some discomfort and some drainage from her tunnel catheter. She was advised to get cultures done at the dialysis unit and today she started having fevers and fatigue. On presentation to the emergency room patient was noted to have temperature 101 and 102 as well as an elevated white blood cell count. She is now being admitted for antibiotics. Home Medications Medication Instructions Recorded Confirmed Type Calcitriol [Rocaltrol] 0.5 mcg PO QOTHER DAY #14 capsule 04/02/16 10/18/16 Rx Epoetin Jona [Epogen] 8,000 unit IV WITH DIALYSIS PRN #0 04/02/16 10/18/16 Rx vial Calcium Acetate [Phoslo] 667 mg PO TID 05/08/16 10/18/16 History amLODIPine [Norvasc] 5 mg PO DAILY 07/12/16 10/18/16 History Hydrocodone/Acetaminophen [[place] 1 each PO Q6H PRN #5 tablet 08/09/16 10/18/16 Rx 7.5-325 Tablet] HydrOXYzine PAMOATE CAP [Vistaril 50 mg PO QID PRN #20 capsule 08/14/16 Rx Cap] Hydrocortisone 1% Cream 1 applic TOP BID PRN 10/18/16 10/18/16 History Lisinopril 40 mg PO DAILY 10/18/16 10/18/16 History Multivitamin [Multivitamins] 1 tablet PO DAILY 10/18/16 10/18/16 History Allergies Allergy/AdvReac Type Severity Reaction Status Date / Time latex Allergy Intermediate RASH Verified 10/18/16 02:15 povidone-iodine Allergy RASH Verified 10/18/16 02:16 [From Betadine] soap [From Betadine] Allergy RASH Verified 10/18/16 02:16 Medical,Surgical,& Family Hx - Medical History Cardio: History of: Hypertension Neurology: No history of: Seizures HEENT: History of: Eye Problem (GLASSES), Dental Problems (PARTIAL UPPER) Respiratory: No history of: Respiratory Problems (FLU VAC-NO; PNEU VAC-NO.) Renal: History of: Dialysis ([facility], [place], [facility]), Renal Failure Gastrointestinal: History of: GI Problems (OCCCASIONAL CONSTIPATION.) Hematology: History of: Anemia (PAST HX) Reproductive: History of: Ovarian Cysts Other: History of: Anesthesia Reactions (NAUSEA AND VOMITING.) - Surgical History Cardiac Surgeries: Sugical HX of: Vascular Access Devices Abdominal Surgeries: Surgical HX of: Colonoscopy, EGD Reproductive Surgeries: Surgical HX of;: Section (X2), Gynecologic Surgery, Hysterectomy (PARTIAL) - Family History Family History: Reports;: Family Heart Disease (sister), Family Stroke (mother, father) Denies;: Family Anesthesia Reaction, Family Cancer, Family Diabetes, Family Hypertension, Family Psychiatric Problems - Social History Smoking Status: Never smoker Frequency of Alcohol Use: None Type of Drug Use: None Review of Systems Constitutional: fatigue, lethargy Cardiovascular: no chest pain at rest Respiratory: no cough, no dyspnea Gastrointestinal: no abdominal pain Musculoskeletal: no muscle weakness Exam - Vital Signs Vital signs: Period Temp Pulse Resp BP Sys/Bobo Pulse Ox Last 24 Hr 99.7 F-102.0 F 109-126 18-22 93-148/58-90 95-112 - General Appearance General appearance: well-developed, well-nourished EENT: ATNC Neck: no JVD, supple Respiratory: clear Cardiology: no edema, regular rate, regular rhythm Gastrointestinal: normoactive bowel sounds Integumentary: no rash (Tunnel catheter in the left chest) Neurologic: alert and oriented x3, CN 3-12 intact Musculoskeletal: no clubbing Psychiatric: mood/affect appropriate, cooperative Results - Labs CBC & BMP: 10/18/16 02:46 10/18/16 02:46 Assessment and Plan (1) Hypertension Status: Chronic Current Visit: No Qualifiers: Hypertension type: essential hypertension Qualified Code(s): I10 - Essential (primary) hypertension (2) Anemia Status: Chronic Current Visit: No Qualifiers: Anemia type: due to chronic kidney disease Chronic kidney disease stage: on chronic dialysis Qualified Code(s): N18.6 - End stage renal disease; D63.1 - Anemia in chronic kidney disease; Z99.2 - Dependence on renal dialysis (3) Line sepsis Status: Acute Assessment and plan: Catheter line infection. Has gotten broad-spectrum antibiotics. Surgery has been consulted. Current Visit: Yes (4) ESRD (end stage renal disease) on dialysis Status: Chronic Assessment and plan: Plan for dialysis on tomorrow as scheduled. We will give vancomycin and gentamicin on dialysis tomorrow. Current Visit: Yes (5) Infection, dialysis vascular access Status: Acute Current Visit: Yes
[2016-10-19] MEDS ORDERED: VANCOMYCIN INJ 750 MG in SODIUM CHLORIDE 0.9% 250 ML IV PRN (05:30)
[2016-10-19 05:58] LABS: Basophils % 0.2 % (0.0-0.8); Eosinophils # 0.3 10*3/uL (0.0-0.87); Eosinophils % 2.3 % (0.00-10.9); Hematocrit 32.2 VOL% (35.7-47.0); Hemoglobin 10.7 GM/DL (12.0-16.0); Immature Granulocytes % 0.4 %; Immature Granulocytes Absolute 0.05 #; Lymphocytes # 1.9 10*3/uL (1.4-4.0); Lymphocytes % 15.8 % (21.3-54.2); Mean Corpuscular HGB Conc 33.2 GM/DL (32-36); Mean Corpuscular Hemoglobin 33 PG (27-34); Mean Corpuscular Volume 98.5 FL (87-102); Mean Platelet Volume 10.7 FL (9.6-12.0); Monocytes # 0.7 10*3/uL (0.11-0.8); Monocytes % 6.1 % (1.7-12.7); Neutrophils # 9.1 10*3/uL (1.4-7.4); Neutrophils % 75.2 % (38.7-73.9); Platelet Count 155 T/CUMM (130-400); Red Blood Count 3.27 MC/CUMM (3.8-5.5); Red Cell Distribution Width 14.6 % (9.3-17.3); White Blood Count 12.2 T/CUMM (4-12)
[2016-10-19 06:28] LABS: Albumin 3.2 G/DL (3.4-5.0); Bilirubin,Total 1.5 MG/DL (0.2-1.0); Calcium 9.7 MG/DL (8.5-10.1); Osmolality,Calculated 285.7 MOS/KG (273-304); Potassium 5.2 MMOL/L (3.5-5.1); Total Protein 6.7 G/DL (6.4-8.3)
[2016-10-19 06:44] LABS: INR 1.1; PT Patient Result 11.6 SECS; Partial Thromboplastin Time 33.4 SECS (0-40)
--- NOTE | 2016-10-19 08:23 | General Surgery Consult Note ---
Assessment and Plan (1) Line sepsis Status: Acute Assessment and plan: The patient's dialysis catheter is infected and she is bacteremic. I recommended removal of her catheter after dialysis today. I have discussed the operation, and the expected outcomes have been reviewed. The patient would like to proceed with the operation. Current Visit: Yes History of Present Illness Chief complaint: Drainage from dialysis catheter with fever History of present illness: Ms. Arango is a 50 year old female who developed purulent drainage around her dialysis catheter with fevers and was bacteremic on blood cultures in the ER. She was admitted for dialysis catheter removal after dialysis today. Home Medications Medication Instructions Recorded Confirmed Type Calcitriol [Rocaltrol] 0.5 mcg PO QOTHER DAY #14 capsule 04/02/16 10/18/16 Rx Epoetin Jona [Epogen] 8,000 unit IV WITH DIALYSIS PRN #0 04/02/16 10/18/16 Rx vial Calcium Acetate [Phoslo] 667 mg PO TID 05/08/16 10/18/16 History amLODIPine [Norvasc] 5 mg PO DAILY 07/12/16 10/18/16 History Hydrocodone/Acetaminophen [[place] 1 each PO Q6H PRN #5 tablet 08/09/16 10/18/16 Rx 7.5-325 Tablet] HydrOXYzine PAMOATE CAP [Vistaril 50 mg PO QID PRN #20 capsule 08/14/16 Rx Cap] Hydrocortisone 1% Cream 1 applic TOP BID PRN 10/18/16 10/18/16 History Lisinopril 40 mg PO DAILY 10/18/16 10/18/16 History Multivitamin [Multivitamins] 1 tablet PO DAILY 10/18/16 10/18/16 History Allergies Allergy/AdvReac Type Severity Reaction Status Date / Time latex Allergy Intermediate RASH Verified 10/18/16 02:15 povidone-iodine Allergy RASH Verified 10/18/16 02:16 [From Betadine] soap [From Betadine] Allergy RASH Verified 10/18/16 02:16 Medical,Surgical,& Family Hx - Medical History Cardio: History of: Hypertension Neurology: No history of: Seizures HEENT: History of: Eye Problem (GLASSES), Dental Problems (PARTIAL UPPER) Respiratory: No history of: Respiratory Problems (FLU VAC-NO; PNEU VAC-NO.) Renal: History of: Dialysis ([facility]), Renal Failure Gastrointestinal: History of: GI Problems (OCCCASIONAL CONSTIPATION.) Hematology: History of: Anemia (PAST HX) Reproductive: History of: Ovarian Cysts Other: History of: Anesthesia Reactions (NAUSEA AND VOMITING.) - Surgical History Cardiac Surgeries: Sugical HX of: Vascular Access Devices Abdominal Surgeries: Surgical HX of: Colonoscopy, EGD Reproductive Surgeries: Surgical HX of;: Section (X2), Gynecologic Surgery, Hysterectomy (PARTIAL) - Family History Family History: Reports;: Family Heart Disease (sister), Family Stroke (mother, father) Denies;: Family Anesthesia Reaction, Family Cancer, Family Diabetes, Family Hypertension, Family Psychiatric Problems - Social History Smoking Status: Never smoker Frequency of Alcohol Use: None Type of Drug Use: None - Constitutional Constitutional: Present: as per HPI - EENT Nose, mouth and throat: Present: as per HPI - Cardiovascular Cardiovascular: Present: as per HPI - Respiratory Respiratory: Present: as per HPI - Gastrointestinal Gastrointestinal: Present: as per HPI - Genitourinary Genitourinary: Present: as per HPI - Musculoskeletal Musculoskeletal: Present: as per HPI - Neurological Neurological: Present: as per HPI - Endocrine Endocrine: Present: as per HPI Hematologic/Lymphatic: Present: as per HPI Exam - Constitutional Vitals: Period Temp Pulse Resp BP Sys/Bobo Pulse Ox Last 24 Hr 98.0 F-102.0 F 93-121 18-20 98-148/48-86 95-112 General appearance: normal weight, no acute distress - Head Head exam: Present: normal inspection, normocephalic - Eye Eye exam: Present: EOMI - ENT ENT exam: Present: normal exam Mouth exam: Present: normal external inspection, normal voice - Neck Neck exam: Present: normal inspection, trachea midline - Respiratory Respiratory exam: Present: clear to auscultation bilaterally. Absent: accessory muscle use, chest wall tenderness - Cardiovascular Cardiovascular exam: Present: RRR. Absent: systolic murmur, tachycardia - GI/Abdominal GI/Abdominal exam: Present: normal bowel sounds, soft. Absent: tenderness, rebound - Extremities Exam Extremities exam: Present: normal inspection, normal capillary refill, other ( There is a good thrill in the right arm fistula) - Neurological Exam Neurological exam: Present: alert, oriented X3 Speech: Present: normal - Skin Skin exam: Present: normal color, warm Quality Measures - VTE Contraindication to Pharmacological VTE Prophylaxis: Clinical assessment deems Pt at low risk, no prophalaxis needed Results - Labs CBC & BMP: 10/19/16 05:30 10/19/16 05:30
[2016-10-19] MEDS ORDERED: HEPARIN 10,000 UNIT/10 ML VIAL IV PRN (09:21)
[2016-10-19] MEDS ORDERED: VANCOMYCIN INJ 1,000 MG in SODIUM CHLORIDE 0.9% 250 ML IV ONE (10:30)
[2016-10-19] MEDS ORDERED: LIDOCAINE 1%/EPI INJ 20 ML VIAL ONE (11:12)
[2016-10-19] MEDS ORDERED: LIDOCAINE 1% 5 ML VIAL ONE (11:25)
[2016-10-19] MEDS ORDERED: PROPOFOL 200 MG/20 ML VIAL IV ONE (11:25)
[2016-10-19] MEDS: SODIUM CHLORIDE 0.9% 250 ML IV SCH (11:26)
--- NOTE | 2016-10-19 11:49 | Operative Note ---
Date of procedure: 10/19/16 Pre-op diagnosis: Bacteremia with infected dialysis catheter Post-op diagnosis: same Procedure: Pre-operative diagnosis Infected hemodialysis catheter Post-operative diagnosis same Procedures Performed Removal of tunneled hemodialysis catheter Findings Complete catheter removal with no obvious infection or clot Complications None apparent Indications Infected hemodialysis catheter with bacteremia Description of procedure The patient was taken to the operating room on his hospital bed and the catheter in chest and neck was prepped chlorhexidine after monitored anesthesia was administered. Timeout was called. Local anesthetic was administered around the catheter and an elliptical skin incision was made with a scalpel. The catheter was freed up the subcutaneous tissues and the cup was . There is good incorporation with no obvious clot or infection. The catheter was completely removed intact and the catheter site was closed with a 4-0 Monocryl suture. The pressure was held over the neck site until bleeding stopped. The patient was transferred to recovery. The catheter tip was sent for culture Postoperative plan Follow-up as needed Anesthesia: MAC, local Surgeon / Physician: Alberto Florentino Estimated blood loss: minimal Specimens: other (catheter tip for culture) Condition: stable Disposition: PACU Results - Labs CBC & BMP: 10/19/16 05:30 10/19/16 05:30 Discharge Plan - Discharge Medications No Action Calcitriol [Rocaltrol] 0.5 mcg PO QOTHER DAY #14 capsule Calcium Acetate [Phoslo] 667 mg PO TID amLODIPine [Norvasc] 5 mg PO DAILY Hydrocodone/Acetaminophen [[place] 7.5-325 Tablet] 1 each PO Q6H PRN #5 tablet PRN Reason: pain HydrOXYzine PAMOATE CAP [Vistaril Cap] 50 mg PO QID PRN #20 capsule PRN Reason: Itching Hydrocortisone 1% Cream 1 applic TOP BID PRN PRN Reason: Itching Multivitamin [Multivitamins] 1 tablet PO DAILY Epoetin Jona [Epogen] 8,000 unit IV WITH DIALYSIS PRN #0 vial PRN Reason: Dialysis Lisinopril 40 mg PO DAILY - Follow Up or Referral - Forms/Instructions
--- NOTE | 2016-10-19 12:00 | Anesthesia Post-Op ---
Anesthesia Post OP - Post Ansesthetic Evaluation Patient seen in post op: Yes Resp: within normal limits CV: within normal limits Mental: within normal limits Temp: within normal limits [id number]: within normal limits Nausea and Vomiting: within normal limits Pain: within normal limits
[2016-10-19] MEDS ORDERED: MIDAZOLAM 2 MG/2 ML VIAL ONE (12:02)
[2016-10-19] MEDS ORDERED: fentaNYL 100 MCG/2 ML VIAL ONE (12:02)
--- NOTE | 2016-10-19 14:08 | Nephrology Progress Note ---
Nephrology - PN: Subj Interval history: The patient is now status post a dialysis catheter removal. She is afebrile at this time. No shortness of breath or chest pain. Continue with broad-spectrum antibiotics. We will plan to leave the catheter out through the weekend. Exam (PN)-Nephrology - Vital Signs Vital signs: Period Temp Pulse Resp BP Sys/Bobo Pulse Ox Last 24 Hr 98.0 F-99.8 F 90-116 16-20 98-139/48-83 93-112 - General Appearance General appearance: well-developed, well-nourished EENT: ATNC Neck: supple Respiratory: clear Cardiology: regular rate, regular rhythm Gastrointestinal: normoactive bowel sounds Neurologic: alert and oriented x3 Musculoskeletal: no erythema, no clubbing Psychiatric: mood/affect appropriate, cooperative - Lab 10/19/16 05:30 10/19/16 05:30 Most recent lab results Calcium 9.7 MG/DL (8.5-10.1) 10/19/16 05:30 Assessment and Plan (1) Hypertension Status: Chronic Current Visit: No Qualifiers: Hypertension type: essential hypertension Qualified Code(s): I10 - Essential (primary) hypertension (2) Anemia Status: Chronic Current Visit: No Qualifiers: Anemia type: due to chronic kidney disease Chronic kidney disease stage: on chronic dialysis Qualified Code(s): N18.6 - End stage renal disease; D63.1 - Anemia in chronic kidney disease; Z99.2 - Dependence on renal dialysis (3) Line sepsis Status: Acute Assessment and plan: Catheter line infection. That is now removed. We will keep catheter out over the weekend plan for new catheter placement on next week. Has gotten broad-spectrum antibiotics. Current Visit: Yes (4) ESRD (end stage renal disease) on dialysis Status: Chronic Assessment and plan: Dialysis on next week. Current Visit: Yes (5) Infection, dialysis vascular access Status: Acute Current Visit: Yes
[2016-10-19] MEDS ORDERED: HydrOXYzine PAMOATE 50 MG CAPSULE PO PRN (15:46)
[2016-10-19] MEDS ORDERED: HYDROCORTISONE 1% CREAM 28 GM TUBE TOP PRN (15:46)
[2016-10-19] MEDS ORDERED: EPOETIN ALFA 10,000 UNIT/1 ML VIAL IV PRN (15:46)
--- NOTE | 2016-10-19 15:52 | Hospitalist Progress Note ---
Assessment and Plan (1) Sepsis Status: Acute Assessment and plan: Patient presented to the hospital with tachypnea tachycardia and very high fevers. There was also an infected catheter site in the left upper chest. This has since been debrided and catheter removed by surgery. She was given a doses of vancomycin today per pharmacy picking tech. They will follow them pharmacokinetics of the drug as we as is being used. I will follow clinically. This is verified with inpatient pharmacy. Current Visit: Yes (2) ESRD (end stage renal disease) on dialysis Status: Chronic Assessment and plan: Administrator Pesticide on the Current Visit: Yes (3) Hyperkalemia Status: Acute Assessment and plan: Blood was drawn before the hemodialysis today will therefore just repeat a BMP with next dialysis Current Visit: No (4) Metabolic acidosis Status: Acute Current Visit: No (5) Anemia Status: Chronic Assessment and plan: This is anemia of chronic disease in a patient with end-stage renal disease. Will follow clinically Current Visit: No Qualifiers: Anemia type: due to chronic kidney disease Chronic kidney disease stage: on chronic dialysis Qualified Code(s): N18.6 - End stage renal disease; D63.1 - Anemia in chronic kidney disease; Z99.2 - Dependence on renal dialysis (6) Hypertension Status: Chronic Current Visit: No Qualifiers: Hypertension type: essential hypertension Qualified Code(s): I10 - Essential (primary) hypertension Hospitalist: Subjective Interval history: Patient has been seen interviewed and examined and chart has been admitted to the hospital with fever element tachycardia with a temperature of 902F and heart rate of 126. Patient does have history of essential hypertension and end- stage renal disease. Long story short patient had an infected dialysis shunt that was on the left subclavian system. Since coming to the hospital on this admission this is been removed. She has another dialysis shunt that is on the right upper extremity too young to be used. An old one that was on the left brachium is since been deconditioned for reason of dysfunction. And has gram- positive cocci growing in the blood pending antibiogram. By PCR MRSA is proved. Patient will be given vancomycin 15 mcg/kg every 48 hours. All antibiotics to be given after dialysis on hemodialysis days. She did have dialysis today. I am expecting that the catheter tip was sent from the operating room to microbiology for cultures. Exam - Constitutional Vitals: Period Temp Pulse Resp BP Sys/Bobo Pulse Ox Last 24 Hr 98.0 F-99.8 F 90-116 16-20 98-139/48-83 93-112 General appearance: normal weight, no acute distress - Head Head exam: Present: normal inspection - Eye Eye exam: Present: EOMI Pupils: Present: TARAH - ENT ENT exam: Present: normal exam - Neck Neck exam: Present: normal inspection - Respiratory Respiratory exam: Present: clear to auscultation bilaterally - Cardiovascular Cardiovascular exam: Present: regular rate and rhythm - GI/Abdominal GI/Abdominal exam: Present: normal bowel sounds, soft - Extremities Exam Extremities exam: Present: full ROM - Neurological Exam Neurological exam: Present: alert, oriented X3, CN II-XII intact - Psychiatric Psychiatric exam: Present: normal affect, normal mood - Skin Skin exam: Present: normal color, warm, dry (Catheter removed from the left subclavian system. Skin is normal with no advancing cellulitis. The side of the right arm AV shunt is normal and the healing with a good buzz.) Results - Labs CBC & BMP: 10/19/16 05:30 10/19/16 05:30 Lab Results: I have reviewed the past 24 hour labs (Positive blood culture with a positive MRSA PCR. Noted hyperkalemia with blood was drawn before hemodialysis) Quality Measures - VTE Contraindication to Pharmacological VTE Prophylaxis: Clinical assessment deems Pt at low risk, no prophalaxis needed
[2016-10-19] MEDS: LISINOPRIL 20 MG TABLET PO SCH (16:44)
[2016-10-19] MEDS: amLODIPine 5 MG TABLET PO SCH (16:45)
[2016-10-19] MEDS: PANTOPRAZOLE 40 MG TABLET PO SCH (16:45)
[2016-10-19] MEDS ORDERED: VANCOMYCIN INJ 750 MG in SODIUM CHLORIDE 0.9% 250 ML IV ONE (17:00)
[2016-10-19] MEDS: CALCIUM ACETATE 667 MG CAPSULE PO SCH (21:37)
[2016-10-20] MEDS: ACETAMINOPHEN 325 MG TABLET PO PRN ×2 (04:46→13:13)
[2016-10-20] MEDS: amLODIPine 5 MG TABLET PO SCH (09:35)
[2016-10-20] MEDS: CALCIUM ACETATE 667 MG CAPSULE PO SCH ×3 (09:35→21:51)
[2016-10-20] MEDS: LISINOPRIL 20 MG TABLET PO SCH (09:35)
[2016-10-20] MEDS: PANTOPRAZOLE 40 MG TABLET PO SCH (09:36)
[2016-10-20] MEDS: MULTIVITAMIN (CENTRUM) TABLET PO SCH (09:36)
--- NOTE | 2016-10-20 10:46 | Nephrology Progress Note ---
Nephrology - PN: Subj Interval history: She is afebrile. She states she feels better overall today. No shortness of breath or nausea. Exam (PN)-Nephrology - Vital Signs Vital signs: Period Temp Pulse Resp BP Sys/Bobo Pulse Ox Last 24 Hr 97.2 F-99.8 F 82-131 16-20 113-153/7-83 90-100 Exam: Gen.: Alert and oriented x3. ENT: Pupils equal round reactive to light. EOMs intact. Mucous membranes moist. Neck: Supple. No JVD or bruit. Cardiovascular: Regular rate and rhythm. No murmur rub or gallop Lungs: Clear Abdomen: Soft. Nontender. Positive bowel sounds. No organomegaly Extremities: No edema. Right arm fistula positive bruit - Lab 10/19/16 05:30 10/19/16 05:30 Most recent lab results Calcium 9.7 MG/DL (8.5-10.1) 10/19/16 05:30 Assessment and Plan (1) Infection, dialysis vascular access Status: Acute Assessment and plan: 50-year-old woman with: * ESRD. She was reminded to restrict potassium and fluid * MRSA bacteremia. Continue vancomycin * Infected dialysis catheter. Catheter removed * Hypertension. Controlled Current Visit: Yes (2) Sepsis Status: Acute Current Visit: Yes (3) ESRD (end stage renal disease) on dialysis Status: Chronic Current Visit: Yes (4) Hypertension Status: Chronic Current Visit: No Qualifiers: Hypertension type: essential hypertension Qualified Code(s): I10 - Essential (primary) hypertension
[2016-10-20] MEDS: SODIUM CHLORIDE 0.9% 250 ML IV SCH (12:20)
[2016-10-20] MEDS: LABETALOL 20 MG/4 ML SYRINGE IV PRN ×2 (13:01→20:41)
--- NOTE | 2016-10-20 14:24 | Hospitalist Progress Note ---
Assessment and Plan (1) Sepsis Status: Acute Assessment and plan: Patient presented to the hospital with tachypnea tachycardia and very high fevers. There was also an infected catheter site in the left upper chest. This has since been debrided and catheter removed by surgery. She was given a doses of vancomycin today per outpatient pharmacy manager. They will follow them pharmacokinetics of the drug as we as is being used. I will follow clinically. This is verified with inpatient pharmacy. Current Visit: Yes (2) ESRD (end stage renal disease) on dialysis Status: Chronic Assessment and plan: Devulcanizer Head on the case. Current Visit: Yes (3) Hyperkalemia Status: Acute Assessment and plan: B resolved Current Visit: No (4) Metabolic acidosis Status: Acute Assessment and plan: Resolved Current Visit: No (5) Anemia Status: Chronic Assessment and plan: This is anemia of chronic disease in a patient with end-stage renal disease. Will follow clinically Current Visit: No Qualifiers: Anemia type: due to chronic kidney disease Chronic kidney disease stage: on chronic dialysis Qualified Code(s): N18.6 - End stage renal disease; D63.1 - Anemia in chronic kidney disease; Z99.2 - Dependence on renal dialysis (6) Hypertension Status: Chronic Assessment and plan: Continue treatment for the home medication for blood pressure Current Visit: No Qualifiers: Hypertension type: essential hypertension Qualified Code(s): I10 - Essential (primary) hypertension (7) MRSA bacteremia Status: Acute Assessment and plan: Patient is on vancomycin. We will continue treated with that. She is put on environmental isolation. Repeat blood cultures verify for continuous bacteremia or the contrary have been drawn. Patient will also use some mupirocin in the anterior nares 10 days a month for 3 months in a row is recommended. Current Visit: Yes Hospitalist: Subjective Interval history: Patient has been seen interviewed and examined and chart has been reviewed. 50- year-old lady with history of end-stage renal disease admitted to the hospital because of line associated sepsis. She had an infected dialysis shunt that had been in the left subclavian system. This was removed in the OR. Subsequent temporary shunt has not been placed yet. She has an AV fistula in the right upper upper extremity which is not matured yet. She undergoes dialysis 3 times a week. Blood cultures have grown methicillin-resistant staph aureus. Repeat cultures to verify continuous bacteremia or the contrary, are being drawn today. Patient is on environmental isolation and was starting use of mupirocin in her nares this in the morning for 10 days each month for 3 months in a row. Clinically she is doing well. Exam - Constitutional Vitals: Period Temp Pulse Resp BP Sys/Bobo Pulse Ox Last 24 Hr 97.2 F-99.0 F 82-131 18-20 131-209/7-110 90-100 General appearance: normal weight, no acute distress - Head Head exam: Present: normocephalic, atraumatic - Eye Eye exam: Present: EOMI Pupils: Present: TARAH - ENT ENT exam: Present: normal exam - Neck Neck exam: Present: normal inspection - Respiratory Respiratory exam: Present: clear to auscultation bilaterally - Cardiovascular Cardiovascular exam: Present: regular rate and rhythm, other (No murmur) - GI/Abdominal GI/Abdominal exam: Present: normal bowel sounds, soft - Extremities Exam Extremities exam: Present: full ROM - Back Exam Back exam: Present: normal inspection - Neurological Exam Neurological exam: Present: alert, oriented X3, CN II-XII intact - Psychiatric Psychiatric exam: Present: normal affect, normal mood - Skin Skin exam: Present: normal color, warm, dry Results - Labs CBC & BMP: 10/19/16 05:30 10/19/16 05:30 Lab Results: I have reviewed the past 24 hour labs Quality Measures - VTE Contraindication to Pharmacological VTE Prophylaxis: Clinical assessment deems Pt at low risk, no prophalaxis needed
[2016-10-20] MEDS: MUPIROCIN 2% OINT 22 GM TUBE TOP SCH (21:51)
[2016-10-21 03:59] LABS: Osmolality,Calculated 296.4 MOS/KG (273-304); Potassium 5.1 MMOL/L (3.5-5.1)
[2016-10-21] MEDS: LISINOPRIL 20 MG TABLET PO SCH (08:41)
[2016-10-21] MEDS: PANTOPRAZOLE 40 MG TABLET PO SCH (08:41)
[2016-10-21] MEDS: CALCITRIOL 0.5 MCG CAPSULE PO SCH (08:41)
[2016-10-21] MEDS: amLODIPine 5 MG TABLET PO SCH (08:41)
[2016-10-21] MEDS: CALCIUM ACETATE 667 MG CAPSULE PO SCH ×3 (08:41→21:17)
[2016-10-21] MEDS: MULTIVITAMIN (CENTRUM) TABLET PO SCH (08:41)
[2016-10-21] MEDS: MUPIROCIN 2% OINT 22 GM TUBE TOP SCH ×2 (08:42→21:17)
[2016-10-21] MEDS: SODIUM CHLORIDE 0.9% 250 ML IV SCH ×2 (08:51→11:03)
--- NOTE | 2016-10-21 11:24 | Nephrology Progress Note ---
Nephrology - PN: Subj Interval history: No shortness of breath or nausea. She is afebrile Exam (PN)-Nephrology - Vital Signs Vital signs: Period Temp Pulse Resp BP Sys/Bobo Pulse Ox Last 24 Hr 97.3 F-97.9 F 81-96 18-22 127-209/58-110 95-100 Exam: Gen.: Alert and oriented x3. ENT: Pupils equal round reactive to light. EOMs intact. Mucous membranes moist. Neck: Supple. No JVD or bruit. Cardiovascular: Regular rate and rhythm. No murmur rub or gallop Lungs: Clear Abdomen: Soft. Nontender. Positive bowel sounds. No organomegaly Extremities: No edema. Right arm fistula positive bruit - Lab 10/19/16 05:30 10/21/16 03:02 Most recent lab results Calcium 9.0 MG/DL (8.5-10.1) 10/21/16 03:02 Assessment and Plan (1) Infection, dialysis vascular access Status: Acute Assessment and plan: 50-year-old woman with: * ESRD. She was reminded to restrict potassium and fluid. No symptoms of volume overload. No dialysis required today * MRSA bacteremia. Continue vancomycin * Infected dialysis catheter. Catheter removed * Hypertension. Controlled Current Visit: Yes (2) Sepsis Status: Acute Current Visit: Yes (3) ESRD (end stage renal disease) on dialysis Status: Chronic Current Visit: Yes (4) Hypertension Status: Chronic Current Visit: No Qualifiers: Hypertension type: essential hypertension Qualified Code(s): I10 - Essential (primary) hypertension
--- NOTE | 2016-10-21 16:16 | Hospitalist Progress Note ---
Hospitalist: Subjective Interval history: Pt states she has metallic taste in her mouth and BP has been treated with Labetalol IV prn. No fever. No abd pain or diarrhea. No cp or SOB. Exam - Constitutional Vitals: Period Temp Pulse Resp BP Sys/Bobo Pulse Ox Last 24 Hr 97.1 F-97.9 F 81-92 18-22 127-159/58-77 95-100 Exam: A and O x 3 RRR no M CTAB nonlabored Soft, NT, ND, BS Warm no c/c/e +L chest wall without erythema or drainage. Results - Labs CBC & BMP: 10/19/16 05:30 10/21/16 03:02 - Impressions (1) Sepsis due to MRSA infected graft with bacteremia s/p I and D Status: Acute Assessment and plan: Patient presented to the hospital with tachypnea tachycardia and very high fevers. - Cont vancomycin. Dosing per pharmacy recommendations. - 10/18 and 10/19 blood cultures are positive for MRSA. Repeat Blood culture 10/20 pending. F/U results. Plans for placement of line Saturday and ?HD . - Cont local wound care Current Visit: Yes (2) ESRD (end stage renal disease) on dialysis Status: Chronic Assessment and plan: Nephrology following. HD per renal. Current Visit: Yes (3) Hyperkalemia Status: Acute Assessment and plan: Resolved with HD Current Visit: No (4) Metabolic acidosis Status: Acute Assessment and plan: Resolved with HD Current Visit: No (5) Anemia Status: Chronic Assessment and plan: This is anemia of chronic disease in a patient with end-stage renal disease. Will follow clinically Current Visit: No Qualifiers: Anemia type: due to chronic kidney disease Chronic kidney disease stage: on chronic dialysis Qualified Code(s): N18.6 - End stage renal disease; D63.1 - Anemia in chronic kidney disease; Z99.2 - Dependence on renal dialysis (6) Hypertension Status: Chronic Assessment and plan: Continue treatment for the home medication for blood pressure Current Visit: No Qualifiers: Hypertension type: essential hypertension Qualified Code(s): I10 - Essential (primary) hypertension (7) MRSA bacteremia Status: Acute Assessment and plan: - Cont Vanc and contact isolation. - F/U repeat blood cultures - Mupirocin in the anterior nares 10 days a month for 3 months in a row is recommended. Current Visit: Yes DVT prophylaxis I will be away several days. One of my associates will follow in my absence. Quality Measures - VTE Contraindication to Pharmacological VTE Prophylaxis: Clinical assessment deems Pt at low risk, no prophalaxis needed
[2016-10-21] MEDS: ACETAMINOPHEN 325 MG TABLET PO PRN (21:21)
[2016-10-22] MEDS: SODIUM CHLORIDE 0.9% 250 ML IV SCH ×2 (01:55→12:04)
[2016-10-22] MEDS: LISINOPRIL 20 MG TABLET PO SCH (08:58)
[2016-10-22] MEDS: amLODIPine 5 MG TABLET PO SCH (08:59)
[2016-10-22] MEDS: MULTIVITAMIN (CENTRUM) TABLET PO SCH (08:59)
[2016-10-22] MEDS: PANTOPRAZOLE 40 MG TABLET PO SCH (09:00)
[2016-10-22] MEDS: MUPIROCIN 2% OINT 22 GM TUBE TOP SCH ×2 (09:01→20:33)
[2016-10-22] MEDS: CALCIUM ACETATE 667 MG CAPSULE PO SCH ×3 (09:01→20:33)
[2016-10-22 10:58] LABS: Calcium 9.1 MG/DL (8.5-10.1); Osmolality,Calculated 302.4 MOS/KG (273-304); Potassium 5.2 MMOL/L (3.5-5.1)
--- NOTE | 2016-10-22 11:10 | Hospitalist Progress Note ---
Assessment and Plan (1) MRSA bacteremia Status: Acute Assessment and plan: The patient continues on antibiotic care. The patient has no dialysis catheter at this point. We look forward to replacement of dialysis catheter tomorrow if blood cultures remain negative. Current Visit: Yes (2) Hypertension Status: Chronic Current Visit: No Qualifiers: Hypertension type: essential hypertension Qualified Code(s): I10 - Essential (primary) hypertension (3) Line sepsis Status: Acute Current Visit: Yes (4) ESRD (end stage renal disease) on dialysis Status: Chronic Current Visit: Yes Hospitalist: Subjective Interval history: This hemodialysis patient was admitted to the hospital with acute septicemia due to line infection. The left subclavian tunneled catheter was removed. Blood cultures revealed MRSA. Last set of blood cultures was obtained on October 20 and is without growth so far. The patient continues on antibiotic care and feels better. We are hoping that she could have a new catheter placed tomorrow and be dialyzed and following that discharged home if feeling well. Exam - Constitutional Vitals: Period Temp Pulse Resp BP Sys/Bobo Pulse Ox Last 24 Hr 97.1 F-98.3 F 87-92 18-22 134-159/56-87 95-100 General appearance: no acute distress - Respiratory Respiratory exam: Present: clear to auscultation bilaterally - Cardiovascular Cardiovascular exam: Present: regular rate and rhythm - GI/Abdominal GI/Abdominal exam: Present: normal bowel sounds Results - Labs CBC & BMP: 10/19/16 05:30 10/22/16 10:13 Lab Results: I have reviewed the past 24 hour labs Quality Measures - VTE Contraindication to Pharmacological VTE Prophylaxis: Clinical assessment deems Pt at low risk, no prophalaxis needed
--- NOTE | 2016-10-22 14:26 | Nephrology Progress Note ---
Nephrology - PN: Subj Interval history: No uremic symptoms. No shortness of breath Exam (PN)-Nephrology - Vital Signs Vital signs: Period Temp Pulse Resp BP Sys/Bobo Pulse Ox Last 24 Hr 97.3 F-98.3 F 87-89 20-22 134-159/56-87 95-100 Exam: Gen.: Alert and oriented x3. ENT: Pupils equal round reactive to light. EOMs intact. Mucous membranes moist. Neck: Supple. No JVD or bruit. Cardiovascular: Regular rate and rhythm. No murmur rub or gallop Lungs: Clear Abdomen: Soft. Nontender. Positive bowel sounds. No organomegaly Extremities: No edema - Lab 10/19/16 05:30 10/22/16 10:13 Most recent lab results Calcium 9.1 MG/DL (8.5-10.1) 10/22/16 10:13 Assessment and Plan (1) Infection, dialysis vascular access Status: Acute Assessment and plan: 50-year-old woman with: * ESRD. No symptoms of volume overload. She is not hyperkalemic. Dialysis tomorrow after new catheter placed * MRSA bacteremia. Continue vancomycin * Infected dialysis catheter. Catheter removed * Hypertension. Controlled Current Visit: Yes (2) Sepsis Status: Acute Current Visit: Yes (3) ESRD (end stage renal disease) on dialysis Status: Chronic Current Visit: Yes (4) Hypertension Status: Chronic Current Visit: No Qualifiers: Hypertension type: essential hypertension Qualified Code(s): I10 - Essential (primary) hypertension
[2016-10-23] MEDS ORDERED: CLINDAMYCIN INJ 900 MG in PREMIX 1 EACH IV ONE (07:00)
--- NOTE | 2016-10-23 07:39 | Event Note ---
The patient is doing well and she is afebrile. Her preliminary blood cultures are negative. I have recommended placement of a new tunneled hemodialysis catheter today and have discussed with the patient the possibility of needing to place this in the groin.
--- NOTE | 2016-10-23 08:28 | Hospitalist Progress Note ---
Assessment and Plan (1) Infection, dialysis vascular access Status: Acute Assessment and plan: The site of the previous tunneled catheter appears clean. She continues on intravenous vancomycin. She is to undergo reinsertion of a tunneled catheter today by Dr. Florentino. Current Visit: Yes (2) MRSA bacteremia Status: Acute Assessment and plan: She continues on intravenous vancomycin. She appears clinically significantly improved. Current Visit: Yes (3) Sepsis Status: Acute Assessment and plan: Sepsis appears resolved. She continues on intravenous vancomycin. Current Visit: Yes (4) ESRD (end stage renal disease) on dialysis Status: Chronic Assessment and plan: She continues on hemodialysis under the management of nephrology. Current Visit: Yes (5) Hypertension Status: Chronic Assessment and plan: Her blood pressure today is 148/70. Current Visit: No Qualifiers: Hypertension type: essential hypertension Qualified Code(s): I10 - Essential (primary) hypertension Hospitalist: Subjective Interval history: Patient is doing well today. She continues on intravenous vancomycin for MRSA catheter infection and bacteremia. She is scheduled today to undergo total catheter placement by Dr. Florentino. If stable, she may be able to be discharged tomorrow and continue to receive her intravenous vancomycin at her scheduled hemodialysis sessions. Exam - Constitutional Vitals: Period Temp Pulse Resp BP Sys/Bobo Pulse Ox Last 24 Hr 97.3 F-98.2 F 85-91 16-20 127-153/72-85 95-99 General appearance: no acute distress - Head Head exam: Present: normal inspection - Neck Neck exam: Present: normal inspection - Respiratory Respiratory exam: Present: clear to auscultation bilaterally - Cardiovascular Cardiovascular exam: Present: regular rate and rhythm - GI/Abdominal GI/Abdominal exam: Present: normal bowel sounds, soft, other (Nontender with no palpable masses or hepatosplenomegaly.) - Extremities Exam Extremities exam: Present: normal inspection - Skin Skin exam: Present: normal color, warm, intact Results - Labs CBC & BMP: 10/19/16 05:30 10/22/16 10:13 Quality Measures - VTE Contraindication to Pharmacological VTE Prophylaxis: Clinical assessment deems Pt at low risk, no prophalaxis needed
[2016-10-23 08:32] LABS: Calcium 9.1 MG/DL (8.5-10.1); Osmolality,Calculated 301.5 MOS/KG (273-304); Potassium 5.3 MMOL/L (3.5-5.1)
[2016-10-23] MEDS ORDERED: HEPARIN 5,000 UNIT/1 ML VIAL ONE (09:10)
[2016-10-23] MEDS ORDERED: BUPIVACAINE 0.25% 50 ML VIAL ONE (09:10)
[2016-10-23] MEDS ORDERED: LIDOCAINE 2% 5 ML VIAL ONE (09:39)
[2016-10-23] MEDS ORDERED: PROPOFOL 200 MG/20 ML VIAL IV ONE (09:39)
--- NOTE | 2016-10-23 10:22 | Operative Note ---
Date of procedure: 10/23/16 Pre-op diagnosis: Renal failure with need for dialysis access Post-op diagnosis: same Procedure: Preoperative diagnosis Renal failure with need for hemodialysis access Postoperative diagnosis Same Procedures performed 1. Right internal jugular vein tunneled hemodialysis catheter placement 2. Ultrasound guidance and interpretation of images 3. Fluoroscopic guidance and interpretation of images Findings The right internal jugular vein is compressible and it was accessed for hemodialysis access. The tip of the catheter was place in the right atrium. Patient tolerated procedure well and both ports worked well. Complications none apparent Specimen None Indications Renal failure with need for access for hemodialysis Description of procedure The patient was taken to the operating room and transferred to the operating table in the supine position. Pressure points are padded and SCDs placed lower extremity. Monitored anesthesia was administered and the neck was prepped and draped sterile fashion using chloride same. Preoperative antibiotics were administered and a timeout was performed. Ultrasound was used to identify the internal jugular vein and local anesthetic was infiltrated around the vein. Local anesthetic was also administered around the planned tract site down to the anterior chest wall below the clavicle. The vein was accessed on first stick and nonpulsatile venous blood was obtained. A wire was placed using Seldinger technique. An incision was made alongside the wire using a long blade scalpel and a separate incision below the clavicle was made with an 11 blade scalpel. A 19 cm catheter was tunneled from the chest incision into the neck wound and a dilator peel-away sheath was placed over the wire. The wire and dilator was removed and the catheter was placed to the peel-away sheath. The catheter was secured in place in the right atrium on fluoroscopic images. Both returned blood easily and were flushed with heparin. The catheter was secured in place using 3-0 nylon sutures and the neck incision was closed with 3 -0 nylon suture. Sterile dressings were applied. The patient was awakened from anesthesia and transferred to recovery. Postoperative plan Begin hemodialysis and obtained chest x-ray postop Anesthesia: MAC, local Surgeon / Physician: Alberto Florentino Estimated blood loss: minimal Specimens: none sent Condition: stable Disposition: PACU Results - Labs CBC & BMP: 10/19/16 05:30 10/23/16 07:41 Discharge Plan - Discharge Medications No Action Calcitriol [Rocaltrol] 0.5 mcg PO QOTHER DAY #14 capsule Calcium Acetate [Phoslo] 667 mg PO TID amLODIPine [Norvasc] 5 mg PO DAILY Hydrocodone/Acetaminophen [[place] 7.5-325 Tablet] 1 each PO Q6H PRN #5 tablet PRN Reason: pain HydrOXYzine PAMOATE CAP [Vistaril Cap] 50 mg PO QID PRN #20 capsule PRN Reason: Itching Hydrocortisone 1% Cream 1 applic TOP BID PRN PRN Reason: Itching Multivitamin [Multivitamins] 1 tablet PO DAILY Epoetin Jona [Epogen] 8,000 unit IV WITH DIALYSIS PRN #0 vial PRN Reason: Dialysis Lisinopril 40 mg PO DAILY - Follow Up or Referral - Forms/Instructions
[2016-10-23] MEDS ORDERED: ONDANSETRON 4 MG/2 ML VIAL ONE (10:35)
[2016-10-23] MEDS ORDERED: HYDROmorphone 2 MG/1 ML VIAL ONE (10:35)
[2016-10-23] MEDS ORDERED: MIDAZOLAM 2 MG/2 ML VIAL ONE (10:35)
[2016-10-23] MEDS: HYDROmorphone 2 MG/1 ML VIAL IV PRN ×4 (10:35→10:50)
[2016-10-23] MEDS ORDERED: SODIUM CHLORIDE 0.9% 100 ML IV ONE (10:36)
[2016-10-23] MEDS ORDERED: fentaNYL 100 MCG/2 ML VIAL ONE (10:36)
[2016-10-23] MEDS ORDERED: ONDANSETRON 4 MG/2 ML VIAL IV PRN (10:45)
--- NOTE | 2016-10-23 10:50 | Anesthesia Post-Op ---
Anesthesia Post OP - Post Ansesthetic Evaluation Patient seen in post op: Yes Resp: within normal limits CV: within normal limits Mental: within normal limits Temp: within normal limits [id number]: within normal limits Nausea and Vomiting: within normal limits Pain: within normal limits
--- NOTE | 2016-10-23 11:17 | XRay Report ---
Exam: XR chest 1V portable Date: 10/23/2016 10:21 AM Indication: Dialysis catheter placement Comparison: 10/18/2016 Technical: AP Findings: A right-sided IJ dialysis catheter has been placed with the distal tip at the right atrium superior vena cava junction. ASVD is present. The heart is normal in size. The mediastinum is otherwise intact. No pneumothorax. Impression: 1. Interval placement of the dialysis catheter without pneumothorax with right-sided approach and removal of a left IJ catheter. 2. No obvious overt failure infiltrates or effusions PROCEDURE INTERPRETED AT [facility] DEPARTMENT OF RADIOLOGY Final Report Signed by: Dr. Patrick Salas
--- NOTE | 2016-10-23 14:11 | Dialysis Note ---
Dialysis Note - Dialysis Note This patient is seen on dialysis. She is tolerating the procedure. BP 150/80 CV:RR LUNGS: Clear bilaterally AB:soft
[2016-10-23] MEDS ORDERED: VANCOMYCIN INJ 750 MG in SODIUM CHLORIDE 0.9% 250 ML IV ONE (16:00)
[2016-10-23] MEDS: CALCIUM ACETATE 667 MG CAPSULE PO SCH ×3 (17:06→22:28)
[2016-10-23] MEDS: MULTIVITAMIN (CENTRUM) TABLET PO SCH (17:07)
[2016-10-23] MEDS: amLODIPine 5 MG TABLET PO SCH (17:07)
[2016-10-23] MEDS: LISINOPRIL 20 MG TABLET PO SCH (17:08)
[2016-10-23] MEDS: PANTOPRAZOLE 40 MG TABLET PO SCH (17:08)
[2016-10-23] MEDS: CALCITRIOL 0.5 MCG CAPSULE PO SCH (17:09)
[2016-10-23] MEDS: MUPIROCIN 2% OINT 22 GM TUBE TOP SCH ×2 (17:10→22:28)
--- NOTE | 2016-10-24 11:34 | Hospitalist Progress Note ---
Assessment and Plan (1) Infection, dialysis vascular access Status: Acute Assessment and plan: She underwent insertion of a new tunneled catheter yesterday. Current Visit: Yes (2) MRSA bacteremia Status: Acute Assessment and plan: She continues on intravenous vancomycin. She appears clinically significantly improved. She will continue on IV vancomycin post discharge. Current Visit: Yes (3) Sepsis Status: Acute Assessment and plan: Sepsis appears resolved. She continues on intravenous vancomycin. Current Visit: Yes Qualifiers: Sepsis type: methicillin resistant Staphylococcus aureus Qualified Code(s) : A41.02 - Sepsis due to Methicillin resistant Staphylococcus aureus (4) ESRD (end stage renal disease) on dialysis Status: Chronic Assessment and plan: She continues on hemodialysis under the management of nephrology. Current Visit: Yes (5) Hypertension Status: Chronic Assessment and plan: Her blood pressure today is 126/74. Current Visit: No Qualifiers: Hypertension type: essential hypertension Qualified Code(s): I10 - Essential (primary) hypertension Hospitalist: Subjective Interval history: Patient underwent insertion of a new tunneled catheter yesterday. She is tolerating dialysis with no problems. Discharge tomorrow on home IV vancomycin. Exam - Constitutional Vitals: Period Temp Pulse Resp BP Sys/Bobo Pulse Ox Last 24 Hr 97.0 F-98.4 F 75-86 18-20 109-159/61-84 97-100 General appearance: no acute distress - Head Head exam: Present: normal inspection - Neck Neck exam: Present: normal inspection - Respiratory Respiratory exam: Present: clear to auscultation bilaterally - Cardiovascular Cardiovascular exam: Present: regular rate and rhythm - GI/Abdominal GI/Abdominal exam: Present: normal bowel sounds, soft, other (Nontender.) - Extremities Exam Extremities exam: Present: normal inspection - Skin Skin exam: Present: normal color, warm, intact Results - Labs CBC & BMP: 10/19/16 05:30 10/23/16 07:41 Quality Measures - VTE Contraindication to Pharmacological VTE Prophylaxis: Clinical assessment deems Pt at low risk, no prophalaxis needed
--- NOTE | 2016-10-24 12:40 | Dialysis Note ---
Dialysis Note - Dialysis Note Patient seen on hemodialysis, she is tolerating this well will continue her treatment unchanged.
[2016-10-24] MEDS ORDERED: VANCOMYCIN INJ 750 MG in SODIUM CHLORIDE 0.9% 250 ML IV ONE (14:00)
[2016-10-24 16:35] VITALS: BP 138/76
[2016-10-24] MEDS: MULTIVITAMIN (CENTRUM) TABLET PO SCH (18:44)
[2016-10-24] MEDS: LISINOPRIL 20 MG TABLET PO SCH (18:45)
[2016-10-24] MEDS: PANTOPRAZOLE 40 MG TABLET PO SCH (18:46)
[2016-10-24] MEDS: amLODIPine 5 MG TABLET PO SCH (18:47)
[2016-10-24] MEDS: CALCIUM ACETATE 667 MG CAPSULE PO SCH ×2 (18:48)
--- NOTE | 2016-10-24 19:04 | Discharge Summary ---
Hospital Course - Hospital Course Hospital Course: This hospitalization included patient admitted for a dialysis catheter line infection. After consultation with surgery, the dialysis catheter was removed. Moreover she continued with antibiotics. The patient had follow-up blood cultures that were positive for MRSA. She was given a break from a dialysis catheter replacement and subsequently had a new dialysis catheter replaced on October 23. The patient tolerated the procedure for well. She underwent hemodialysis without event. She continue with antibiotics with 1 g of vancomycin. She had no fevers or chills. Moreover, no shortness of breath or chest pain reported. She remained hemodynamically stable. At this time she has reached maximal hospitalization and is prepared for discharge. She will follow with outpatient hemodialysis at the [place] dialysis unit on a Saturday schedule. She will continue with outpatient vancomycin on dialysis. She will receive 1.5 g of vancomycin on Mondays and Fridays at dialysis for the next 6 weeks. No other acute changes. And she is prepared for discharge. - Time spent with patient Time with patient DS: Greater than 30 minutes (32 minutes) Diagnosis - Discharge Diagnosis (1) Hypertension Status: Chronic (2) Anemia Status: Chronic (3) Line sepsis Status: Resolved (4) ESRD (end stage renal disease) on dialysis Status: Chronic (5) Infection, dialysis vascular access Status: Resolved Discharge Plan - Discharge Data Disposition: Disch To Home/Self Care Condition at Discharge: Stable Discharge Diet: advance to your usual diet Activity: resume usual activities as tolerated Hygiene: no restrictions Contact your physician if you experience:: fever over 101, Shortness of breath - Discharge Medications Continue Calcitriol [Rocaltrol] 0.5 mcg PO QOTHER DAY #14 capsule Calcium Acetate [Phoslo] 667 mg PO TID amLODIPine [Norvasc] 5 mg PO DAILY Hydrocodone/Acetaminophen [[place] 7.5-325 Tablet] 1 each PO Q6H PRN #5 tablet PRN Reason: pain HydrOXYzine PAMOATE CAP [Vistaril Cap] 50 mg PO QID PRN #20 capsule PRN Reason: Itching Hydrocortisone 1% Cream 1 applic TOP BID PRN PRN Reason: Itching Multivitamin [Multivitamins] 1 tablet PO DAILY Epoetin Jona [Epogen] 8,000 unit IV WITH DIALYSIS PRN #0 vial PRN Reason: Dialysis Lisinopril 40 mg PO DAILY - Follow Up or Referral - Forms/Instructions Additional Discharge Instructions: Patient to continue with 1.5 g of vancomycin on Mondays and Fridays at the outpatient dialysis unit Exam - Constitutional Vitals: Period Temp Pulse Resp BP Sys/Bobo Pulse Ox Last 24 Hr 97.2 F-98.4 F 75-96 18-20 109-156/67-76 97-100 General appearance: normal weight - Head Head exam: Present: normal inspection - Eye Eye exam: Present: EOMI - ENT ENT exam: Present: normal exam - Neck Neck exam: Present: normal inspection - Respiratory Respiratory exam: Present: clear to auscultation bilaterally - Cardiovascular Cardiovascular exam: Present: regular rate and rhythm - GI/Abdominal GI/Abdominal exam: Present: normal bowel sounds - Extremities Exam Extremities exam: Present: normal inspection - Back Exam Back exam: Present: normal inspection - Psychiatric Psychiatric exam: Present: normal affect - Skin Skin exam: Present: normal color Discharge Results Procedures and tests throughout hospitalization: Pending Orders 10/20/16 14:42 Blood Culture Routine 10/26/16 04:00 Vancomycin,Random IN AM Labs on day of discharge: Preliminary micro results at discharge 10/20/16 14:42 Blood Culture - Preliminary Blood No growth at 3 days 10/20/16 14:42 Blood Culture - Preliminary Blood No growth at 3 days DS: Provider Date of admission: 10/19/16 09:28 Primary care physician: . No PCP Attending physician on admission: Milo Kelley MD Consults: 10/18/16 05:09 Consult to Physician [CONS] Routine Comment: Consulting Provider: Adolph Lundy Jr. Consult to Specialist Group: Nephrology When should Consulting Provider be notified: In am Person Notified: [email or web address] Date Notified: 10/18/16 Time Notified: 14:01 Consult Notification Comment: 10/18/16 05:12 Consult to Physician [CONS] Routine Comment: Infected HD Tunnel Cath. PLacement of new access Consulting Provider: Alberto Florentino Consulting Provider Notified: Yes Person Notified: Chantale Date Notified: 10/18/16 Time Notified: 13:55 10/18/16 13:50 Consult to Dietitian [CONS] Routine Reason for Dietitian: Dietary Consult Consult to Pastoral Services [CONS] Routine Comment: Pastoral Screen: Request Punchboard Inserter Visit 10/19/16 08:21 Consult to Anesthesiology [CONS] Routine Consulting Provider: Reason for Anesthesiology: Pre-op Clearance 10/23/16 06:38 Consult to Anesthesiology [CONS] Routine Consulting Provider: Reason for Anesthesiology: Pre-op Clearance 10/23/16 07:35 Consult to Case Mgmt/Social Srvs [CONS] Routine Reason for Case Mgmt/Social Srvs: Home IV Therapy Consult Comment: vancomycin for 14 days 10/24/16 11:35 Consult to Case Mgmt/Social Srvs [CONS] Routine Reason for Case Mgmt/Social Srvs: Discharge Planning Consult Comment: Discharge tomorrow on home IV vancomycin for 2 weeks at dialysis Discharging clinician: Adolph Lundy Jr., MD
== END 2016-10-24 20:45 | disposition home or self-care (01) | DRG 286 ==
LOC: SUATTDRO → N.EDINP 02:02 → N.ED 02:02 → SUATTDRO 05:09 → N.EDINP 13:20 → N.2E 13:34 → SUATTDRO 10-19 09:28
PROVIDERS: ADMIT Internal Medicine Infectious Disease